=== PATIENT | female | born 1970 | race Caucasian/White ===

== ENCOUNTER → 2019-07-04 14:15 | Outpatient (BNVA) | payer MEDICARE, SELFPAY | PROVIDERS: Family Provider Family Medicine; PCP Family Medicine; Visit Provider Family Medicine | DX: J44.9 Chronic obstructive pulmonary disease, unspecified (principal); I10 Essential (primary) hypertension; F32.9 Major depressive disorder, single episode, unspecified; E11.9 Type 2 diabetes mellitus without complications; K21.9 Gastro-esophageal reflux disease without esophagitis; G43.709 Chronic migraine without aura, not intractable, without status migrainosus; M62.838 Other muscle spasm; E78.5 Hyperlipidemia, unspecified; G47.00 Insomnia, unspecified; Z68.42 Body mass index [BMI] 45.0-49.9, adult; Z72.0 Tobacco use; E55.9 Vitamin D deficiency, unspecified; R53.83 Other fatigue | CPT/HCPCS: 80053; 80061; 82652; 83036 ==

== ENCOUNTER 2019-09-05 16:27 | Inpatient (IN) | payer MEDICARE, MEDICAID, SELFPAY ==
[2019-09-05] VITALS (18 sets, daily range): BP systolic 95–150; BP diastolic 59–107; PULSE 101–120; RESP 12–27; TEMP 36.6–36.9; O2SAT 91–95; BMI 47.3
--- NOTE | 2019-09-05 16:41 | ED_ITS ---
Documented by User: Jeremy Toussaint DO 09/06/19 07:06 HPI - SOB/Dyspnea General: Chief Complaint: Shortness of Breath/Dyspnea Stated Complaint: yellowing skin/abd pain Time Seen by Provider: 09/05/19 16:40 History of Present Illness: HPI Narrative: 49 yo female comes in today complaining of chest heaviness and fullness states he feels like her abdominal cavity is pushing up against her chest. She has a history of DVTs but is no longer any Coumadin. The previous DVT was related to an orthopedic procedure of the left ankle. She said the chest heaviness radiates into her neck at times on the right side but not into her arms. She does have a chronic cough which is nonproductive she states she has asthma that has not changed recently she denies any fever. She also states her abdomen feels heavy she has not impressive amount of central adiposity. She states her appetite is been decreased she denies any GI or symptoms although she has chronic urinary incontinence. No recent new upper respiratory symptoms. She has no known history of coronary artery disease although she does have significant coronary artery risk factors including diabetes hypertension hyperlipidemia. She also is morbidly obese and has a history of sleep apnea. MD elicited complaint: shortness of breath, cough and chest pain Pertinent past history: asthma Onset (ago): day(s) Context: occurred during exertion, medication noncompliance and other (History of DVT) Timing: constant Severity: moderate Exacerbating factors: lying flat and exertion Relieving factors: rest and upright position Known history of: asthma and DVT Associated symptoms: Reports chest congestion, chest pain, cough, nausea, orthopnea and vomiting; Deny abdominal pain, diaphoresis, dizziness, fever(s), hemoptysis, lightheadedness or palpitations Treatment prior to arrival: none Review of Systems Const: Denies: fever(s), chills, body aches, change in appetite, fatigue, malaise or diaphoresis ENMT: Denies: throat pain, ear or mastoid pain, nasal discharge or nasal congestion Card: Reports: chest pain, dyspnea on exertion and orthopnea; Denies: palpitations, edema or lightheadedness Resp: Reports: chest congestion; Denies: dyspnea, productive cough, non-productive cough or hemoptysis GI: Reports: nausea and vomiting; Denies: abdominal pain, hematemesis, coffee ground emesis, diarrhea, constipation, bloating, hematochezia or melena : Denies: flank pain, difficulty voiding, dysuria, urinary frequency or urinary urgency Skin/Breast: Denies: rash or pruritus Neuro: Denies: dizziness PFSH ED PFSH: Medical History (Updated 09/05/19 @ 19:37 by Funmilayo Bangura MD) Asthma BMI 45.0-49.9, adult Chronic migraine COPD (chronic obstructive pulmonary disease) Depression, controlled Essential hypertension GERD (gastroesophageal reflux disease) Hepatic steatosis History of pulmonary embolism Hyperlipidemia Insomnia Mobility impaired Morbid obesity Muscle spasm of both lower legs KARISSA (obstructive sleep apnea) Pedal edema Radicular neuropathy Restless leg syndrome Tobacco abuse Type 2 diabetes mellitus Type 2 diabetes mellitus with diabetic neuropathy Vitamin D deficiency Surgical History (Updated 09/05/19 @ 19:33 by Funmilayo Bangura MD) H/O lithotripsy 08/15 Left ureteral stent which was removed after 1 week History of arthroplasty of right ankle History of carpal tunnel surgery History of laminectomy Hx of cataract surgery S/P cholecystectomy Family History Grandmother Cancer Mother Cancer Father CAD (coronary artery disease) Family/Other Chronic kidney disease (CKD) Social History Smoking and tobacco status: current every day smoker cigarettes Packs smoked per day: 1 Quit status (tobacco): not considering quitting Second hand smoke exposure: Yes Alcohol intake: never Desire information about alcohol rehabilitation?: No Desire information about substance/drug rehabilitation?: No Current occupational status: disabled History of recent travel: No Current gender identity: Female Physical Exam Const: COMMON NORMALS: no acute distress GENERAL APPEARANCE: cooperative and comfortable ORIENTATION/CONSCIOUSNESS: Yes awake, Yes oriented to person, Yes oriented to place and Yes oriented to time HENMT: COMMON NORMALS: normocephalic, atraumatic, hearing grossly normal bilaterally, external ears normal, EAC's normal, TM's normal bilaterally, Normal nasal mucous membranes and turbinates present, moist oral mucous membranes and oropharynx normal HEAD & SCALP: normocephalic and atraumatic NOSE: Normal nasal mucous membranes and turbinates present EXTERNAL EAR: Yes external ears normal EXTERNAL AUDITORY CANAL: EAC's normal TYMPANIC MEMBRANE: TM's normal bilaterally Eye: COMMON NORMALS: Equal, round and reactive pupils present, EOMs intact bilaterally, conjunctivae normal and no scleral icterus CONJUNCTIVA: Yes conjunctivae normal PUPIL: Yes Equal, round and reactive pupils present Neck/C-Spine: COMMON NORMALS: full ROM, no lymphadenopathy, supple and no JVD Lymph: LYMPHATIC: no lymphadenopathy noted and no lymphedema noted Resp: COMMON NORMALS: normal respiratory effort, No retractions, No use of accessory muscles and clear to auscultation bilaterally AUSCULTATION: clear to auscultation bilaterally Cardio: COMMON NORMALS: no JVD, regular rate, regular rhythm and No murmurs p resent (Cardio) RATE: regular rate RHYTHM: regular rhythm GI: COMMON NORMALS: Soft to palpation and No hepatosplenomegaly present AUSCULTATION: Yes normoactive bowel sounds PALPATION: Yes Soft to palpation, No Tenderness to palpation present (GI), No Guarding due to palpation present (GI) and Yes No hepatosplenomegaly present Extremity: COMMON NORMALS: normal to inspection, capillary refill normal, no clubbing, cyanosis or edema, no calf tenderness and no pedal edema Neuro: SENSORIUM/ORIENTATION: Yes oriented to person, Yes oriented to place and Yes oriented to time Skin: COMMON NORMALS: no rashes or lesions noted GENERAL SKIN EXAM: no rashes or lesions noted Course Vital Signs: Vital signs: Vital Signs Temperature 97.8 F 09/05/19 22:00 Pulse Rate 83 09/06/19 06:00 Respiratory Rate 18 09/06/19 06:00 Blood Pressure 97/69 09/06/19 06:00 Pulse Oximetry 89 L 09/06/19 06:00 MDM - SOB/Dyspnea MDM Narrative: Medical decision making narrative: Reviewed with Dr. Brett brink turned over to him at change of shift. Lab Data: Labs: Lab Results 09/05/19 09/05/19 09/05/19 Range/Units 17:08 17:08 17:08 WBC 14.0 H (4.0-10.0) 10^3/ uL RBC 5.04 (4.1-5.3) 10^6/u L Hgb 16.0 H (11.5-15.3) g/dL Hct 48.2 H (37.0-47.0) % MCV 95.6 (81-99) fL MCH 31.7 (28.0-34.0) pg MCHC 33.2 (30.0-36.0) g/dL RDW 12.3 (12.1-15.1) % Plt Count 256 (130-400) 10^3/c mm MPV 9.6 (7.4-10.4) fL Neut % (Auto) 52.0 % Lymph % (Auto) 39.5 % [place] % (Auto) 6.7 % Eos % (Auto) 0.9 % Baso % (Auto) 0.6 % Neut # (Auto) 7.3 (1.8-7.7) 10^3/u L Lymph # (Auto) 5.5 H (0.8-4.8) 10^3/u L [place] # (Auto) 0.9 (0.2-0.9) 10^3/u L Eos # (Auto) 0.1 (0.0-0.8) 10^3/u L Baso # (Auto) 0.1 (0.0-0.1) 10^3/u L Nucleated RBC % (a uto) 0 % Nucleated RBCs # 0.0 /100WBC PT (10.5-13.3) SECO NDS INR (0.8-1.2) D-Dimer (0-0.59) ug/mIFE U Sodium 136 (136-145) mmol/L Potassium 3.7 (3.5-5.1) mmol/L Chloride 99 (98-107) mmol/L Carbon Dioxide 25 (22-29) mmol/L Anion Gap 15.7 (5-19) BUN 12 (6-20) mg/dL Creatinine 0.8 (0.5-0.9) mg/dL GFR Calculation 75.6 L (90-130) mL/min Glucose 178 H (65-115) mg/dL Calculated Osmolal ity 283 L (285-295) mOsm/k g Calcium 8.6 (8.5-10.5) mg/dL Total Bilirubin 0.4 (0.15-1.2) mg/dL AST 51 H (0-32) U/L ALT 74 H (0-33) U/L Alkaline Phosphata se 67 (35-105) IU/L Troponin T Baselin e 25 H (0-10) ng/L Troponin T 120 Min [place] (0-10) ng/L Delta Troponin T (0-10) ABS# NT-Pro-B Natriuret Pep (0-125) pg/mL Total Protein 7.1 (6.6-8.7) g/dL Albumin 4.2 (3.5-5.2) g/dL Globulin 2.9 (1.3-4.6) g/dL Urine Color (Yellow) Urine Appearance (CLEAR) Urine pH (5-7) Ur Specific Gravit y (1.005-1.030) Urine Protein (Negative) Urine Glucose (UA) (Normal) Urine Ketones (Negative) Urine Blood (Negative) Urine Nitrate (Negative) Urine Bilirubin (NEGATIVE) Urine Urobilinogen (Negative) mg/dL Ur Leukocyte Vicky ase (Negative) Urine RBC (0-2) /hpf Urine WBC (0-5) /hpf Ur Squamous Epith Cells (0-5) Urine Bacteria (NONE) 09/05/19 09/05/19 09/05/19 Range/Units 17:08 17:08 17:45 WBC (4.0-10.0) 10^3/ uL RBC (4.1-5.3) 10^6/u L Hgb (11.5-15.3) g/dL Hct (37.0-47.0) % MCV (81-99) fL MCH (28.0-34.0) pg MCHC (30.0-36.0) g/dL RDW (12.1-15.1) % Plt Count (130-400) 10^3/c mm MPV (7.4-10.4) fL Neut % (Auto) % Lymph % (Auto) % [place] % (Auto) % Eos % (Auto) % Baso % (Auto) % Neut # (Auto) (1.8-7.7) 10^3/u L Lymph # (Auto) (0.8-4.8) 10^3/u L [place] # (Auto) (0.2-0.9) 10^3/u L Eos # (Auto) (0.0-0.8) 10^3/u L Baso # (Auto) (0.0-0.1) 10^3/u L Nucleated RBC % (a uto) % Nucleated RBCs # /100WBC PT 12.80 (10.5-13.3) SECO NDS INR 0.94 (0.8-1.2) D-Dimer 3.72 H (0-0.59) ug/mIFE U Sodium (136-145) mmol/L Potassium (3.5-5.1) mmol/L Chloride (98-107) mmol/L Carbon Dioxide (22-29) mmol/L Anion Gap (5-19) BUN (6-20) mg/dL Creatinine (0.5-0.9) mg/dL GFR Calculation (90-130) mL/min Glucose (65-115) mg/dL Calculated Osmolal ity (285-295) mOsm/k g Calcium (8.5-10.5) mg/dL Total Bilirubin (0.15-1.2) mg/dL AST (0-32) U/L ALT (0-33) U/L Alkaline Phosphata se (35-105) IU/L Troponin T Baselin e (0-10) ng/L Troponin T 120 Min [place] (0-10) ng/L Delta Troponin T (0-10) ABS# NT-Pro-B Natriuret Pep (0-125) pg/mL Total Protein (6.6-8.7) g/dL Albumin (3.5-5.2) g/dL Globulin (1.3-4.6) g/dL Urine Color Yellow (Yellow) Urine Appearance Hazy A (CLEAR) Urine pH 5 (5-7) Ur Specific Gravit y 1.015 (1.005-1.030) Urine Protein Neg (Negative) Urine Glucose (UA) Norm (Normal) Urine Ketones 1+ H (Negative) Urine Blood 2+ H (Negative) Urine Nitrate Negative (Negative) Urine Bilirubin Neg (NEGATIVE) Urine Urobilinogen Neg (Negative) mg/dL Ur Leukocyte Vicky ase Trace H (Negative) Urine RBC 0-4 H (0-2) /hpf Urine WBC 15-25 H (0-5) /hpf Ur Squamous Epith Cells None (0-5) Urine Bacteria 3+ H (NONE) 09/05/19 09/05/19 Range/Units 18:43 18:43 WBC (4.0-10.0) 10^3/ uL RBC (4.1-5.3) 10^6/u L Hgb (11.5-15.3) g/dL Hct (37.0-47.0) % MCV (81-99) fL MCH (28.0-34.0) pg MCHC (30.0-36.0) g/dL RDW (12.1-15.1) % Plt Count (130-400) 10^3/c mm MPV (7.4-10.4) fL Neut % (Auto) % Lymph % (Auto) % [place] % (Auto) % Eos % (Auto) % Baso % (Auto) % Neut # (Auto) (1.8-7.7) 10^3/u L Lymph # (Auto) (0.8-4.8) 10^3/u L [place] # (Auto) (0.2-0.9) 10^3/u L Eos # (Auto) (0.0-0.8) 10^3/u L Baso # (Auto) (0.0-0.1) 10^3/u L Nucleated RBC % (a uto) % Nucleated RBCs # /100WBC PT (10.5-13.3) SECO NDS INR (0.8-1.2) D-Dimer (0-0.59) ug/mIFE U Sodium (136-145) mmol/L Potassium (3.5-5.1) mmol/L Chloride (98-107) mmol/L Carbon Dioxide (22-29) mmol/L Anion Gap (5-19) BUN (6-20) mg/dL Creatinine (0.5-0.9) mg/dL GFR Calculation (90-130) mL/min Glucose (65-115) mg/dL Calculated Osmolal ity (285-295) mOsm/k g Calcium (8.5-10.5) mg/dL Total Bilirubin (0.15-1.2) mg/dL AST (0-32) U/L ALT (0-33) U/L Alkaline Phosphata se (35-105) IU/L Troponin T Baselin e (0-10) ng/L Troponin T 120 Min [place] 24.80 H (0-10) ng/L Delta Troponin T -0.20 L (0-10) ABS# NT-Pro-B Natriuret Pep 1707 H (0-125) pg/mL Total Protein (6.6-8.7) g/dL Albumin (3.5-5.2) g/dL Globulin (1.3-4.6) g/dL Urine Color (Yellow) Urine Appearance (CLEAR) Urine pH (5-7) Ur Specific Gravit y (1.005-1.030) Urine Protein (Negative) Urine Glucose (UA) (Normal) Urine Ketones (Negative) Urine Blood (Negative) Urine Nitrate (Negative) Urine Bilirubin (NEGATIVE) Urine Urobilinogen (Negative) mg/dL Ur Leukocyte Vicky ase (Negative) Urine RBC (0-2) /hpf Urine WBC (0-5) /hpf Ur Squamous Epith Cells (0-5) Urine Bacteria (NONE) Discharge Plan Discharge Patient Disposition: Admitted As Inpatient Admit Provider: Funmilayo Bangura Clinical Impression: Pulmonary embolism Qualifiers: Pulmonary embolism type: unspecified Chronicity: acute Acute cor pulmonale presence: unspecified Qualified Code(s): I26.99 - Other pulmonary embolism without acute cor pulmonale Condition: Stable Referrals: Jamee Landin MD [Primary Care Provider] - Discharge Date/Time: 09/05/19 21:40 Coding Level of Care Code ED [employer] Worker for Chg Fwd Exam Comprehensive Documented by User: Kyaw West MD 09/05/19 20:33 HPI - SOB/Dyspnea General: Chief Complaint: Shortness of Breath/Dyspnea Stated Complaint: yellowing skin/abd pain Time Seen by Provider: 09/05/19 16:40 [facility] ED PFSH: Medical History (Updated 09/05/19 @ 19:37 by Funmilayo Bangura MD) Asthma BMI 45.0-49.9, adult Chronic migraine COPD (chronic obstructive pulmonary disease) Depression, controlled Essential hypertension GERD (gastroesophageal reflux disease) Hepatic steatosis History of pulmonary embolism Hyperlipidemia Insomnia Mobility impaired Morbid obesity Muscle spasm of both lower legs KARISSA (obstructive sleep apnea) Pedal edema Radicular neuropathy Restless leg syndrome Tobacco abuse Type 2 diabetes mellitus Type 2 diabetes mellitus with diabetic neuropathy Vitamin D deficiency Surgical History (Updated 09/05/19 @ 19:33 by Funmilayo Bangura MD) H/O lithotripsy 08/15 Left ureteral stent which was removed after 1 week History of arthroplasty of right ankle History of carpal tunnel surgery History of laminectomy Hx of cataract surgery S/P cholecystectomy Family History Grandmother Cancer Mother Cancer Father CAD (coronary artery disease) Family/Other Chronic kidney disease (CKD) Social History Smoking and tobacco status: current every day smoker cigarettes Packs smoked per day: 1 Quit status (tobacco): not considering quitting Second hand smoke exposure: Yes Alcohol intake: never Desire information about alcohol rehabilitation?: No Desire information about substance/drug rehabilitation?: No Current occupational status: disabled History of recent travel: No Current gender identity: Female Course Vital Signs: Vital signs: Vital Signs Temperature 97.8 F 09/05/19 22:00 Pulse Rate 83 09/06/19 06:00 Respiratory Rate 18 09/06/19 06:00 Blood Pressure 97/69 09/06/19 06:00 Pulse Oximetry 89 L 09/06/19 06:00 MDM - SOB/Dyspnea MDM Narrative: Medical decision making narrative: Manju presents here with shortness of breath and was found to have a significant pulmonary embolism on CT. Spoke to radiologist and had a mild heart strain with mild elevated and troponin. Patient's blood pressures here have been stable and does not need a lysis or thrombectomy. Patient started on Lovenox and I spoke to hospitalist and will admit to the ICU. Patient has been stable while here. Lab Data: Labs: Lab Results 09/05/19 09/05/19 09/05/19 Range/Units 17:08 17:08 17:08 WBC 14.0 H (4.0-10.0) 10^3/ uL RBC 5.04 (4.1-5.3) 10^6/u L Hgb 16.0 H (11.5-15.3) g/dL Hct 48.2 H (37.0-47.0) % MCV 95.6 (81-99) fL MCH 31.7 (28.0-34.0) pg MCHC 33.2 (30.0-36.0) g/dL RDW 12.3 (12.1-15.1) % Plt Count 256 (130-400) 10^3/c mm MPV 9.6 (7.4-10.4) fL Neut % (Auto) 52.0 % Lymph % (Auto) 39.5 % [place] % (Auto) 6.7 % Eos % (Auto) 0.9 % Baso % (Auto) 0.6 % Neut # (Auto) 7.3 (1.8-7.7) 10^3/u L Lymph # (Auto) 5.5 H (0.8-4.8) 10^3/u L [place] # (Auto) 0.9 (0.2-0.9) 10^3/u L Eos # (Auto) 0.1 (0.0-0.8) 10^3/u L Baso # (Auto) 0.1 (0.0-0.1) 10^3/u L Nucleated RBC % (a uto) 0 % Nucleated RBCs # 0.0 /100WBC PT (10.5-13.3) SECO NDS INR (0.8-1.2) D-Dimer (0-0.59) ug/mIFE U Sodium 136 (136-145) mmol/L Potassium 3.7 (3.5-5.1) mmol/L Chloride 99 (98-107) mmol/L Carbon Dioxide 25 (22-29) mmol/L Anion Gap 15.7 (5-19) BUN 12 (6-20) mg/dL Creatinine 0.8 (0.5-0.9) mg/dL GFR Calculation 75.6 L (90-130) mL/min Glucose 178 H (65-115) mg/dL Calculated Osmolal ity 283 L (285-295) mOsm/k g Calcium 8.6 (8.5-10.5) mg/dL Total Bilirubin 0.4 (0.15-1.2) mg/dL AST 51 H (0-32) U/L ALT 74 H (0-33) U/L Alkaline Phosphata se 67 (35-105) IU/L Troponin T Baselin e 25 H (0-10) ng/L Troponin T 120 Min [place] (0-10) ng/L Delta Troponin T (0-10) ABS# NT-Pro-B Natriuret Pep (0-125) pg/mL Total Protein 7.1 (6.6-8.7) g/dL Albumin 4.2 (3.5-5.2) g/dL Globulin 2.9 (1.3-4.6) g/dL Urine Color (Yellow) Urine Appearance (CLEAR) Urine pH (5-7) Ur Specific Gravit y (1.005-1.030) Urine Protein (Negative) Urine Glucose (UA) (Normal) Urine Ketones (Negative) Urine Blood (Negative) Urine Nitrate (Negative) Urine Bilirubin (NEGATIVE) Urine Urobilinogen (Negative) mg/dL Ur Leukocyte Vicky ase (Negative) Urine RBC (0-2) /hpf Urine WBC (0-5) /hpf Ur Squamous Epith Cells (0-5) Urine Bacteria (NONE) 09/05/19 09/05/19 09/05/19 Range/Units 17:08 17:08 17:45 WBC (4.0-10.0) 10^3/ uL RBC (4.1-5.3) 10^6/u L Hgb (11.5-15.3) g/dL Hct (37.0-47.0) % MCV (81-99) fL MCH (28.0-34.0) pg MCHC (30.0-36.0) g/dL RDW (12.1-15.1) % Plt Count (130-400) 10^3/c mm MPV (7.4-10.4) fL Neut % (Auto) % Lymph % (Auto) % [place] % (Auto) % Eos % (Auto) % Baso % (Auto) % Neut # (Auto) (1.8-7.7) 10^3/u L Lymph # (Auto) (0.8-4.8) 10^3/u L [place] # (Auto) (0.2-0.9) 10^3/u L Eos # (Auto) (0.0-0.8) 10^3/u L Baso # (Auto) (0.0-0.1) 10^3/u L Nucleated RBC % (a uto) % Nucleated RBCs # /100WBC PT 12.80 (10.5-13.3) SECO NDS INR 0.94 (0.8-1.2) D-Dimer 3.72 H (0-0.59) ug/mIFE U Sodium (136-145) mmol/L Potassium (3.5-5.1) mmol/L Chloride (98-107) mmol/L Carbon Dioxide (22-29) mmol/L Anion Gap (5-19) BUN (6-20) mg/dL Creatinine (0.5-0.9) mg/dL GFR Calculation (90-130) mL/min Glucose (65-115) mg/dL Calculated Osmolal ity (285-295) mOsm/k g Calcium (8.5-10.5) mg/dL Total Bilirubin (0.15-1.2) mg/dL AST (0-32) U/L ALT (0-33) U/L Alkaline Phosphata se (35-105) IU/L Troponin T Baselin e (0-10) ng/L Troponin T 120 Min [place] (0-10) ng/L Delta Troponin T (0-10) ABS# NT-Pro-B Natriuret Pep (0-125) pg/mL Total Protein (6.6-8.7) g/dL Albumin (3.5-5.2) g/dL Globulin (1.3-4.6) g/dL Urine Color Yellow (Yellow) Urine Appearance Hazy A (CLEAR) Urine pH 5 (5-7) Ur Specific Gravit y 1.015 (1.005-1.030) Urine Protein Neg (Negative) Urine Glucose (UA) Norm (Normal) Urine Ketones 1+ H (Negative) Urine Blood 2+ H (Negative) Urine Nitrate Negative (Negative) Urine Bilirubin Neg (NEGATIVE) Urine Urobilinogen Neg (Negative) mg/dL Ur Leukocyte Vicky ase Trace H (Negative) Urine RBC 0-4 H (0-2) /hpf Urine WBC 15-25 H (0-5) /hpf Ur Squamous Epith Cells None (0-5) Urine Bacteria 3+ H (NONE) 09/05/19 09/05/19 Range/Units 18:43 18:43 WBC (4.0-10.0) 10^3/ uL RBC (4.1-5.3) 10^6/u L Hgb (11.5-15.3) g/dL Hct (37.0-47.0) % MCV (81-99) fL MCH (28.0-34.0) pg MCHC (30.0-36.0) g/dL RDW (12.1-15.1) % Plt Count (130-400) 10^3/c mm MPV (7.4-10.4) fL Neut % (Auto) % Lymph % (Auto) % [place] % (Auto) % Eos % (Auto) % Baso % (Auto) % Neut # (Auto) (1.8-7.7) 10^3/u L Lymph # (Auto) (0.8-4.8) 10^3/u L [place] # (Auto) (0.2-0.9) 10^3/u L Eos # (Auto) (0.0-0.8) 10^3/u L Baso # (Auto) (0.0-0.1) 10^3/u L Nucleated RBC % (a uto) % Nucleated RBCs # /100WBC PT (10.5-13.3) SECO NDS INR (0.8-1.2) D-Dimer (0-0.59) ug/mIFE U Sodium (136-145) mmol/L Potassium (3.5-5.1) mmol/L Chloride (98-107) mmol/L Carbon Dioxide (22-29) mmol/L Anion Gap (5-19) BUN (6-20) mg/dL Creatinine (0.5-0.9) mg/dL GFR Calculation (90-130) mL/min Glucose (65-115) mg/dL Calculated Osmolal ity (285-295) mOsm/k g Calcium (8.5-10.5) mg/dL Total Bilirubin (0.15-1.2) mg/dL AST (0-32) U/L ALT (0-33) U/L Alkaline Phosphata se (35-105) IU/L Troponin T Baselin e (0-10) ng/L Troponin T 120 Min [place] 24.80 H (0-10) ng/L Delta Troponin T -0.20 L (0-10) ABS# NT-Pro-B Natriuret Pep 1707 H (0-125) pg/mL Total Protein (6.6-8.7) g/dL Albumin (3.5-5.2) g/dL Globulin (1.3-4.6) g/dL Urine Color (Yellow) Urine Appearance (CLEAR) Urine pH (5-7) Ur Specific Gravit y (1.005-1.030) Urine Protein (Negative) Urine Glucose (UA) (Normal) Urine Ketones (Negative) Urine Blood (Negative) Urine Nitrate (Negative) Urine Bilirubin (NEGATIVE) Urine Urobilinogen (Negative) mg/dL Ur Leukocyte Vicky ase (Negative) Urine RBC (0-2) /hpf Urine WBC (0-5) /hpf Ur Squamous Epith Cells (0-5) Urine Bacteria (NONE) Imaging Data^: CT Chest: Attestation: I personally reviewed and interpreted this imaging study as follows: Radiologist's impression: [place] [address] CT Scan Report Signed Patient: Manju Hale Unit #: [id number] : 1970 Age/Sex: 49 / F ADM Date: 09/05/19 Loc: ER Room/Bed: Attending Dr: Ordering Provider/Ordering MD: Jeremy Toussaint DO Date of Service: 09/05/19 Procedure(s): CT angio chest PE [facility] [id number] Accession Number(s): [id number] Report Number: [id number] PROCEDURE INFORMATION: Exam: CT Angiography Chest With Contrast Exam date and time: 09/05/2019 6:15 PM Age: 49 years old Clinical indication: Shortness of breath; Prior surgery; Surgery type: Neck, gb; Additional info: Chest pain. Dyspnea TECHNIQUE: Imaging protocol: Computed tomographic angiography of the chest with intravenous contrast. 3D rendering: MIP and/or 3D reconstructed images were created by the technologist. Radiation optimization: All CT scans at this facility use at least one of these dose optimization techniques: automated exposure control; mA and/or kV adjustment per patient size (includes targeted exams where dose is matched to clinical indication); or iterative reconstruction. Contrast material: OMNI 350; Contrast volume: 72 ml; Contrast route: IV; COMPARISON: CR XR chest 1V portable [id number] 09/05/2019 4:53 PM RADIATION DOSE METRICS: Total DLP: 621.22 mGy-cm FINDINGS: Pulmonary arteries: Bulky filling defects bilaterally. On the right clot is seen within the distal right pulmonary artery extending throughout lower lobe segmental and branches, largely occlusive, as well as partially occlusive within the right middle lobe and to lesser extent right upper lobe. On the left partially occlusive clot is seen within the lower lobe segmental and subsegmental branches and to a lesser extent upper lobe. The main pulmonary artery is free of clot. Main pulmonary artery measures 3 cm in caliber. Aorta: Unremarkable. No aortic aneurysm. No aortic dissection. Lungs: No focal consolidation. Central airways normal caliber and patent. Pleural space: Unremarkable. No pneumothorax. No pleural effusion. Heart: Abnormal RA/PA ratio of 1.2 indicating increased right heart pressure. The heart is normal in size. Trace pericardial effusion. Lymph nodes: Unremarkable. No enlarged lymph nodes. Upper abdomen: Limited imaging of the upper abdomen reveals diffuse hepatic steatosis and cholecystectomy clips. Bones/joints: Partially imaged lower cervical fusion plate. No evidence of acute or aggressive osseous lesion. Soft tissues: Unremarkable. CT/CT angio chest PE protcl [id number] IMPRESSION: 1. Bilateral acute pulmonary emboli, greater clot burden on the right with evidence of right heart strain. 2. The lungs are well expanded with no consolidation/infarct. 3. Incidental note of diffuse hepatic steatosis. EKG Data^: EKG 1: Attestation: I personally reviewed and interpreted this EKG as follows: EKG Interpretation Date: 09/05/19 EKG interpretation time: 19:20 Interpretation: sinus tach hr 103 nonspecific t wve abnormality qrs 88 qtc 411 Critical Care Time Critical Care Time: Critical Care Time: Yes Total Critical Care Time: 36 Attestation: This case had a high probability of a clinically significant, sudden, or life threatening deterioration of this patient's condition which required my full and direct attention, intervention and personal management. 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
--- NOTE | 2019-09-05 16:43 | XR_ITS ---
WS: [id number] PORTABLE CHEST HISTORY: dyspnea/cough COMPARISON: 07/28/2018 Lungs are clear and well expanded. No pleural effusion or pneumothorax. Cardiac size: Normal. Mediastinum/Aorta: Normal mediastinum. No osseous abnormality seen. XR/XR chest 1V portable [id number] IMPRESSION: Unremarkable portable chest.
--- NOTE | 2019-09-05 16:43 | ECG_ITS ---
Measurements Intervals [place] Rate: 103 P: 50 NM: 123 QRS: 56 QRSD: 88 T: -31 QT: 351 QTc: 462 SINUS TACHYCARDIA NONSPECIFIC T-WAVE ABNORMALITY Compared to ECG 09/05/2019 17:03:31 No significant changes Electronically Signed On 09-06-2019 19:31:39 CDT by Bhargavi Aragon M.D. [id number]
--- NOTE | 2019-09-05 16:53 | USCV_ITS ---
Geoffrey Manju Age: 49 Gender: F : 1970 Exam Date: 09/05/2019 17:12 Ordering Phys: Jeremy Toussaint DO Technologist: Priyank Tatum Exam Location: [facility] [place] Indication: CALF PAIN PROCEDURES: Venous duplex imaging was performed in bilateral lower extremities. The following venous structures were evaluated: common femoral vein, profunda vein, proximal portion of the greater saphenous vein, superficial femoral vein, and the popliteal vein. In addition, the posterior tibial and peroneal trunk were evaluated. Serial compression, augmentation maneuvers, and spectral Doppler flow evaluation were performed. FINDINGS: Patient has history of thrombus in the right leg. Chronic, retracting DVT is noted in the popliteal and peroneal veins on the right. . Augmental flow was noted through the popliteal nad peroneal veins on the right. All other veins imaged throughout the right and left lower extremity appear free of thrombus at this time. CONCLUSIONS Chronic retracting DVT right popliteal and peroneal veins. Dr. Rose Donnelly DO (Electronically Signed) Final Date: 06 September 2019 09:25 S
[2019-09-05 17:15] LABS: Basophils # 0.1 10^3/uL (0.0-0.1); Basophils % 0.6 %; Eosinophils # 0.1 10^3/uL (0.0-0.8); Eosinophils % 0.9 %; Hematocrit 48.2 % (37.0-47.0); Lymphocytes # 5.5 10^3/uL (0.8-4.8); Lymphocytes % 39.5 %; Mean Corpuscular HGB Conc 33.2 g/dL (30.0-36.0); Mean Corpuscular Hemoglobin 31.7 pg (28.0-34.0); Mean Corpuscular Volume 95.6 fL (81-99); Mean Platelet Volume 9.6 fL (7.4-10.4); Monocytes # 0.9 10^3/uL (0.2-0.9); Monocytes % 6.7 %; Neutrophils # 7.3 10^3/uL (1.8-7.7); Nucleated Red Blood Cells % 0 %; Platelet Count 256 10^3/cmm (130-400); Red Blood Count 5.04 10^6/uL (4.1-5.3); Red Cell Distribution Width 12.3 % (12.1-15.1)
[2019-09-05 17:29] LABS: D Dimer 3.72 ug/mIFEU (0-0.59)
[2019-09-05 17:33] LABS: Alanine Aminotransferase 74 U/L (0-33); Albumin Level 4.2 g/dL (3.5-5.2); Alkaline Phosphatase 67 IU/L (35-105); Anion Gap 15.7 (5-19); Aspartate Amino Transferase 51 U/L (0-32); Blood Urea Nitrogen 12 mg/dL (6-20); Calcium 8.6 mg/dL (8.5-10.5); Carbon Dioxide 25 mmol/L (22-29); Chloride 99 mmol/L (98-107); Globulin 2.9 g/dL (1.3-4.6); Glomerular Filtration Rate 75.6 mL/min (90-130); Glucose 178 mg/dL (65-115); Osmolality Calculated 283 mOsm/kg (285-295); Potassium 3.7 mmol/L (3.5-5.1); Sodium 136 mmol/L (136-145); Total Bilirubin 0.4 mg/dL (0.15-1.2); Total Protein 7.1 g/dL (6.6-8.7)
[2019-09-05 17:37] LABS: Troponin(5th) Baseline 25 ng/L (0-10)
--- NOTE | 2019-09-05 17:46 | CTR_ITS ---
PROCEDURE INFORMATION: Exam: CT Angiography Chest With Contrast Exam date and time: 09/05/2019 6:15 PM Age: 49 years old Clinical indication: Shortness of breath; Prior surgery; Surgery type: Neck, gb; Additional info: Chest pain. Dyspnea TECHNIQUE: Imaging protocol: Computed tomographic angiography of the chest with intravenous contrast. 3D rendering: MIP and/or 3D reconstructed images were created by the technologist. Radiation optimization: All CT scans at this facility use at least one of these dose optimization techniques: automated exposure control; mA and/or kV adjustment per patient size (includes targeted exams where dose is matched to clinical indication); or iterative reconstruction. Contrast material: OMNI 350; Contrast volume: 72 ml; Contrast route: IV; COMPARISON: CR XR chest 1V portable [id number] 09/05/2019 4:53 PM RADIATION DOSE METRICS: Total DLP: 621.22 mGy-cm FINDINGS: Pulmonary arteries: Bulky filling defects bilaterally. On the right clot is seen within the distal right pulmonary artery extending throughout lower lobe segmental and branches, largely occlusive, as well as partially occlusive within the right middle lobe and to lesser extent right upper lobe. On the left partially occlusive clot is seen within the lower lobe segmental and subsegmental branches and to a lesser extent upper lobe. The main pulmonary artery is free of clot. Main pulmonary artery measures 3 cm in caliber. Aorta: Unremarkable. No aortic aneurysm. No aortic dissection. Lungs: No focal consolidation. Central airways normal caliber and patent. Pleural space: Unremarkable. No pneumothorax. No pleural effusion. Heart: Abnormal RA/PA ratio of 1.2 indicating increased right heart pressure. The heart is normal in size. Trace pericardial effusion. Lymph nodes: Unremarkable. No enlarged lymph nodes. Upper abdomen: Limited imaging of the upper abdomen reveals diffuse hepatic steatosis and cholecystectomy clips. Bones/joints: Partially imaged lower cervical fusion plate. No evidence of acute or aggressive osseous lesion. Soft tissues: Unremarkable. CT/CT angio chest PE protcl [id number] IMPRESSION: 1. Bilateral acute pulmonary emboli, greater clot burden on the right with evidence of right heart strain. 2. The lungs are well expanded with no consolidation/infarct. 3. Incidental note of diffuse hepatic steatosis. Radiation Dose CTDIVOL = (mGy): DLP = 621.22 (mGy-cm)
[2019-09-05 18:12] LABS: Add Urine Microscopic? YES; Bilirubin Urine Neg (NEGATIVE); Blood Urine 2+ (Negative); Glucose Urine UA Norm (Normal); Ketones Urine 1+ (Negative); Leukocyte Esterase Urine Trace (Negative); Nitrate Urine Negative (Negative); Protein Urine Neg (Negative); Specific Gravity, Urine 1.015 (1.005-1.030); Urine Appearance Hazy (CLEAR); Urine Color Yellow (Yellow); Urobilinogen Urine Neg (Negative); pH Urine 5 (5-7)
[2019-09-05 18:13] LABS: Add Urine Culture? Yes; Bacteria Urine 3+; RBC Urine 0-4 /hpf (0-2); WBC Urine 15-25 /hpf (0-5)
[2019-09-05] MEDS: iohexol 350 mg/mL 100 mL Btl IV (18:36)
--- NOTE | 2019-09-05 18:59 | PC.NURSE ---
Report received from ART [facility] and care transferred to [facility]
[2019-09-05] MEDS: enoxaparin 100 mg/mL Syringe SUBCUT (19:20)
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
[2019-09-05] MEDS: ondansetron 2 mg/ML SDV 2 mL 4 MG IVP (19:32)
[2019-09-05] MEDS: cefTRIAXone 1,000 MG in sodium chloride 0.9% (plus) 50 ML 100 MG IV (19:34)
[2019-09-05 19:42] LABS: NT Pro B Type Natriuretic Pept 1707 pg/mL (0-125)
[2019-09-05 19:42] LABS: INR 0.94 (0.8-1.2)
[2019-09-05 22:43] LABS: Platelet Count 241 10^3/cmm (130-400)
--- NOTE | 2019-09-05 22:43 | ECG_ITS ---
Measurements Intervals [place] Rate: 102 P: 44 [place]: 130 QRS: 55 QRSD: 84 T: -21 QT: 356 QTc: 466 SINUS TACHYCARDIA NONSPECIFIC T-WAVE ABNORMALITY Compared to ECG 08/12/2018 12:57:07 T-wave abnormality now present Electronically Signed On 09-05-2019 19:31:55 CDT by Funmilayo Dillon M.D. [email or web address]
[2019-09-05] MEDS: gabapentin 400 mg Capsule PO (22:48)
[2019-09-05] MEDS: heparin drip 25,000 UNIT/500 ML PREMIX 35.1 UNIT IV (22:49)
[2019-09-05] MEDS: heparin 5,000 unit/mL INJ 1 mL IV (22:49)
[2019-09-05 22:50] LABS: Partial Thromboplastin Time 27.9 SECONDS (23.9-36.7)
[2019-09-05 23:00] LABS: Troponin 5 6HR 26.27 ng/L (0-10); Troponin 5 6HR Delta 1.27 ng/L (0-12)
[2019-09-05 23:02] LABS: Glucose Point of Care 215 mg/dL (70-110)
[2019-09-06] VITALS (41 sets, daily range): BP systolic 78–157; BP diastolic 59–99; PULSE 67–121; RESP 11–31; TEMP 37.1; O2SAT 18–98
[2019-09-06 04:42] LABS: Basophils # 0.1 10^3/uL (0.0-0.1); Basophils % 0.7 %; Eosinophils # 0.2 10^3/uL (0.0-0.8); Eosinophils % 1.3 %; Hematocrit 43.5 % (37.0-47.0); Hemoglobin 14.4 g/dL (11.5-15.3); Lymphocytes # 5.4 10^3/uL (0.8-4.8); Lymphocytes % 44.9 %; Mean Corpuscular HGB Conc 33.1 g/dL (30.0-36.0); Mean Corpuscular Hemoglobin 32.3 pg (28.0-34.0); Mean Corpuscular Volume 97.5 fL (81-99); Mean Platelet Volume 9.9 fL (7.4-10.4); Monocytes # 0.8 10^3/uL (0.2-0.9); Monocytes % 6.2 %; Neutrophils # 5.6 10^3/uL (1.8-7.7); Neutrophils % 46.6 %; Nucleated Red Blood Cells % 0 %; Platelet Count 221 10^3/cmm (130-400); Red Blood Count 4.46 10^6/uL (4.1-5.3); Red Cell Distribution Width 12.3 % (12.1-15.1)
[2019-09-06 05:04] LABS: Partial Thromboplastin Time 88.5 SECONDS (23.9-36.7)
[2019-09-06 05:07] LABS: Anion Gap 17.7 (5-19); Blood Urea Nitrogen 15 mg/dL (6-20); Calcium 8.9 mg/dL (8.5-10.5); Carbon Dioxide 23 mmol/L (22-29); Chloride 99 mmol/L (98-107); Glomerular Filtration Rate 75.6 mL/min (90-130); Glucose 213 mg/dL (65-115); Osmolality Calculated 285 mOsm/kg (285-295); Potassium 3.7 mmol/L (3.5-5.1); Sodium 136 mmol/L (136-145)
[2019-09-06 07:26] LABS: Glucose Point of Care 216 mg/dL (70-110)
[2019-09-06] MEDS: atorvastatin 40 mg Tablet 20 MG PO (09:01)
[2019-09-06] MEDS: gabapentin 400 mg Capsule PO ×3 (09:01→22:03)
[2019-09-06] MEDS: duloxetine 60 mg Capsule PO ×2 (09:01→18:32)
[2019-09-06] MEDS: cefTRIAXone 1,000 MG in sodium chloride 0.9% (plus) 50 ML 100 MG IV (09:01)
--- NOTE | 2019-09-06 09:44 | P.PN_ITS ---
Subjective Subjective: Interval history: Chart reviewed including old [facility] records. Was intermittently hypotensive and tachycardic overnight, vitals more stable this AM. Is currently on heparin drip. Echo findings reviewed. Borderline hypoxic on RA. Resting in bed, no apparent distress, has just been placed on supplemental oxygen. Does remember being treated with Coumadin in the past seco ndary to PE and right lower extremity DVT, cannot recall dose and estimates that this was approximately 2 to 3 years ago. Very reluctant to consider Lovenox as she dislikes injections. Discussed need to initiate bridging with continued heparin drip and initiation of Coumadin she is agreeable to. Discussed need for lifelong anticoagulation. Medications: Reviewed: Yes Medication Review Details: Active Medications Generic Name Dose Route Start Last Admin Trade Name Freq PRN Reason Stop Dose Admin Atorvastatin Calci um 20 mg 09/06/19 09:00 09/06/19 09:01 Lipitor PO 20 mg DAILY LAURA Administration Dextrose 25 ml 09/05/19 22:07 D50w IVP ONCE PRN hypoglycemia prot ocol Protocol Dextrose 50 ml 09/05/19 22:07 D50w IVP PRN PRN hypoglycemia prot ocol Protocol Duloxetine HCl 60 mg 09/06/19 09:00 09/06/19 09:01 Cymbalta PO 60 mg BID LAURA Administration Gabapentin 400 mg 09/05/19 22:07 09/06/19 09:01 Neurontin PO 400 mg TID LAURA Administration Glucagon 1 mg 09/05/19 22:07 Glucagen IM ONCE PRN Adult Acute Hypog lycemia Prot. Protocol Heparin Sodium (Be ef Lung) 0 unit 09/05/19 22:07 09/05/19 22:49 Heparin IV 6,300 unit PRN PRN Administration Heparin weight-ba se protocol Protocol Dextrose 500 mls @ 100 mls /hr 09/05/19 22:07 D5w IV ONCE PRN Adult Acute Hypog lycemia Prot Protocol Heparin Sodium/Sod ium Chloride 25,000 unit in 50 0 mls @ 0 mls/hr 09/05/19 22:07 09/06/19 05:22 Heparin Drip IV 11.98 unit/kg/hr .Q0M LAURA 30 mls/hr Titration Protocol Per Protocol Ceftriaxone Sodium 1,000 mg/ 50 mls @ 100 mls/ hr 09/06/19 09:00 09/06/19 09:01 Sodium Chloride IV 100 mls/hr DAILY LAURA Administration Protocol Insulin Aspart 0 unit 09/05/19 22:07 09/06/19 08:57 Novolog SUBCUT 6 unit WM&BEDTIME LAURA Administration Protocol erythromycin base Allergy (Severe, Verified 09/05/19 14:42) ALGY-Anaphylaxis Penicillins Allergy (Severe, Verified 09/05/19 14:42) ALGY-Anaphylaxis tetracycline Allergy (Severe, Verified 09/05/19 14:42) ALGY-Anaphylaxis shellfish derived Allergy (Intermediate, Verified 09/05/19 14:42) ALGY-Hives insect venom Allergy (Mild, Verified 09/05/19 14:42) ALGY-Swell Lip/Tongue/Throat Vitals/I&O/Wt Last Vital Signs Temp 97.8 F 09/05/19 22:00 Pulse 83 09/06/19 06:00 Resp 18 09/06/19 06:00 BP 97/69 09/06/19 06:00 Pulse Ox 89 L 09/06/19 06:00 09/05/19 09/06/19 09/06/19 22:59 06:59 14:59 Intake Total 50 / 50 229.905 / 279.905 Balance 50 / 50 229.905 / 279.905 Weight last 48 hrs Weight 125.191 kg Physical Exam Const: COMMON NORMALS: no acute distress, patient oriented x3 and alert GENERAL APPEARANCE: cooperative and comfortable NUTRITIONAL APPEARANCE: obese morbidly obese ORIENTATION/CONSCIOUSNESS: Yes awake HENMT: COMMON NORMALS: normocephalic, atraumatic, hearing grossly normal bilaterally and moist oral mucous membranes HEAD & SCALP: normocephalic and atraumatic Eye: COMMON NORMALS: Equal, round and reactive pupils present, EOMs intact b ilaterally and conjunctivae normal CONJUNCTIVA: Yes conjunctivae normal PUPIL: Yes Equal, round and reactive pupils present Neck/C-Spine: COMMON NORMALS: full ROM GENERAL: Yes normal visual ins pection and Yes trachea midline OTHER: -short, thick neck Chest: CHEST: Yes Symmetrical chest wall rise Resp: COMMON NORMALS: normal respiratory effort, No retractions, No use of accessory muscles and clear to auscultation bilaterally EFFORT & INSPECTION: Yes able to speak in complete sentences, Yes symmetric chest movement and No tachypneic AUSCULTATION: clear to auscultation bilaterally OTHER: -on 2 L NC Cardio: COMMON NORMALS: regular rate, regular rhythm, S1 normal heart sound present, S2 normal heart sound present and No murmurs present (Cardio) RATE: regular rate RHYTHM: regular rhythm HEART SOUNDS: S1 normal heart sound present and S2 normal heart sound present GI: COMMON NORMALS: Normal to inspection, nondistended, normoactive bowel sounds present, Soft to palpation and non-tender INSPECTION: Yes central obesity PALPATION: Yes Soft to palpation Extremity: COMMON NORMALS: normal to inspection, full ROM, no clubbing, cyanosis or edema and no pedal edema Neuro: COMMON NORMALS: patient oriented x3, moves all extremities, no focal motor deficits and no sensory deficits noted SENSORIUM/ORIENTATION: Yes alert Psych: COMMON NORMALS: mental status grossly normal, Normal thought process present, cooperative, normal affect and speech normal SPEECH: Yes normal speech THOUGHT PROCESS: Normal thought process present Skin: COMMON NORMALS: no rashes or lesions noted, no jaundice, no petechiae and no mottling GENERAL SKIN EXAM: no rashes or lesions noted Data : 09/06/19 04:30 09/06/19 04:30 A&P Assessment and plan (1) Pulmonary embolism: -Has reported history of prior PE and right lower extremity DVT both of which required post-op, previously treated with Coumadin -CTA noted with bilateral acute PE, greater clot burden on the right, evidence of right heart strain -Venous duplex shows chronic DVT in the right popliteal and subacute DVT in peroneal veins -Will need lifelong anticoagulation -Currently on heparin drip, start on Coumadin, daily INR with goal of 2-3. Coumadin would likely be a good option due to body habitus; she would prefer not to use injection form of AC i.e. Lovenox -Echo: EF=55-60%, no RWMA, G1DD, moderate pulmonary HTN (51), trace MR, mild TR -greatest risk factors are likely morbid obesity, sedentary lifestyle; reports maternal family history of hypercoaguloble state -noted to be hypotensive and tachycardic overnight, borderline hypoxic on RA; continue to monitor vital signs -monitor respiratory status, supplemental oxygen as needed Status: Acute Qualifiers: Acute cor pulmonale presence: unspecified Chronicity: acute Pulmonary embolism type: unspecified Qualified Code(s): I26.99 - Other pulmonary embolism without acute cor pulmonale (2) UTI (urinary tract infection): -symptomatic: dysuria, pruritus -UA indicative of infection -f/u urine cx -on Ceftriaxone Status: Acute Qualifiers: Hematuria presence: without hematuria Urinary tract infection type: acute cystitis Qualified Code(s): N30.00 - Acute cystitis without hematuria (3) Essential hypertension: -hypotensive overnight, BP low normal this AM -hold oral antihypertensives -continue to monitor vital signs Status: Chronic (4) Type 2 diabetes mellitus: -A1c-7.6 -not insulin dependent; hold metformin due to contrast study -ISS, accucheks, hypoglycemia precautions -consistent carb diet as tolerated Status: Chronic Qualifiers: Diabetes mellitus complication status: with other specified complication Diabetes mellitus adjunct faculty for medical terminology insulin use: without snf use Qualified Code(s): E11.69 - Type 2 diabetes mellitus with other specified complication (5) Morbid obesity: -BMI-47 kg/m2 with associated comorbidities as noted -ambulates with walker for short distances, pending electric WC -fall precautions Status: Chronic (6) Tobacco abuse: -1 PPD -working on quitting, has been on Chantix Status: Chronic (7) Hyperlipidemia: -noted lipid panel -on statin Status: Chronic Qualifiers: Hyperlipidemia type: mixed hyperlipidemia Qualified Code(s): E78.2 - Mixed hyperlipidemia (8) GERD (gastroesophageal reflux disease): -reported hx of Claire's esophagus -has been following up with Dr. Busch and was scheduled for EGD this week, rescheduled -on PPI Status: Chronic Qualifiers: Esophagitis presence: without esophagitis Qualified Code(s): K21.9 - Gastro-esophageal reflux disease without esophagitis (9) Depression, controlled: -continue Cymbalta Status: Chronic (10) COPD (chronic obstructive pulmonary disease): -not oxygen dependent at baseline -continue to monitor respiratory status, supplemental oxygen as needed -no acute exacerbation Status: Chronic Qualifiers: COPD type: chronic bronchitis Chronic bronchitis type: simple Qu alified Code(s): J41.0 - Simple chronic bronchitis (11) Hepatic steatosis: -diffuse hepatic steatosis noted on imaging, mild transaminitis Status: Chronic (12) History of Claire's esophagus: Status: Chronic Additional A&P Information -Chronic diastolic CHF: no acute exacerbation, BNP elevation likely secondary to acute PE -hx of migraine headaches -GI ppx with PPI -no need for DVT ppx as on therapeutic AC -Dispo: home; may need HH if need to continue bridging -Code status: FULL code -ICU care due to need for continued close hemodynamic and respiratory status monitoring, low threshold for decompensation Attestations Medical Necessity Statement*: Patient requires hospitalization for continued therapeutic anticoagulation as treatment for his noted bilateral PE and right lower extremity DVT as well as treatment for UTI with IV antibiotics pending culture results. Time Spent in Patient Care: Greater than 35 minutes (>than 50% of time spent in counselling and/or direct pt care on unit) . Coding Level of Care Code Acute Computed Tomography Technologist for g Fwd Exam Comprehensive Diagnoses Pulmonary embolism I26.99 Acute cor pulmonale presence: unspecified Chronicity: acute Pulmonary embolism type: unspecified UTI (urinary tract infection) N30.00 Hematuria presence: without hematuria Urinary tract infection type: acute cystitis Essential hypertension I10 Type 2 diabetes mellitus E11.69 Diabetes mellitus complication status: with other specified complication Diabetes mellitus adjunct faculty for medical terminology insulin use: without snf use Morbid obesity E66.01 Tobacco abuse Z72.0 Hyperlipidemia E78.2 Hyperlipidemia type: mixed hyperlipidemia GERD (gastroesophageal reflux disease) K21.9 Esophagitis presence: without esophagitis Depression, controlled F32.9 COPD (chronic obstructive pulmonary disease) J41.0 COPD type: chronic bronchitis Chronic bronchitis type: simple Hepatic steatosis K76.0 History of Claire's esophagus Z87.19
[2019-09-06] MEDS: pantoprazole DR 40 mg Tablet PO ×2 (11:18→18:32)
--- NOTE | 2019-09-06 11:18 | PC.NURSE ---
Protonix administered at 1100 instead of 1000. AM meds were already given. Did not see new order for new med.
[2019-09-06 11:24] LABS: Glucose Point of Care 176 mg/dL (70-110)
[2019-09-06 12:05] LABS: Partial Thromboplastin Time 51.7 SECONDS (23.9-36.7)
--- NOTE | 2019-09-06 12:45 | PC.NURSE ---
PTT resulted. Heparin gtt increased to 33mls/hr per protocol.
[2019-09-06] MEDS: heparin drip 25,000 UNIT/500 ML PREMIX 30 UNIT IV (14:11)
[2019-09-06] MEDS: warfarin 5 mg Tablet PO (15:55)
--- NOTE | 2019-09-06 15:57 | PC.NURSE ---
Pt using bathroom when 1400 Coumadin due. Nurse became busy with other pt and administered with 1500 Gabapentin.
[2019-09-06 16:41] LABS: Glucose Point of Care 185 mg/dL (70-110)
[2019-09-06 18:41] LABS: Partial Thromboplastin Time 48.6 SECONDS (23.9-36.7)
[2019-09-06] MEDS: methocarbamol 750 mg Tablet PO (22:03)
--- NOTE | 2019-09-06 22:07 | USCV_ITS ---
Geoffrey Manju Age: 49 Gender: F : 1970 Exam Date: 09/06/2019 06:02 Ordering Phys: Funmilayo Bangura MD Technologist: Ebonie Forman Exam Location: [facility] – [place] Indication: PE RT HEART STRAIN BP: 90 / 68 HR: 84 Rhythm: Sinus Technical Quality: Adequate MEASUREMENTS (Male / Female) Normal Values 2D ECHO LV Diastolic Diameter PLAX 2.7 cm 4.2 - 5.9 / 3.9 - 5.3 cm LV Systolic Diameter PLAX 3.0 cm LV Chamber Size 2.3 cm IVS Diastolic Thickness 1.8 cm 0.6 - 1.0 / 0.6 - 0.9 cm IVS Systolic Thickness 1.9 cm LVPW Diastolic Thickness 1.5 cm 0.6 - 1.0 / 0.6 - 0.9 cm LVPW Systolic Thickness 1.8 cm RV Chamber Size 3.1 cm LVOT Diameter 2.0 cm LV Ejection Fraction 2D Teich 33.0 % LV Ejection Fraction MOD 2C 27.3 % LV Ejection Fraction 2C AL 24.9 % LA Diameter 4.0 cm LA Width 2.3 cm LA Height 4.0 cm RA Width 3.3 cm RA Height 4.1 cm Aorta at Sinotubular Diameter 3.1 cm M-MODE LV Diastolic Diameter MM 3.8 cm 4.2 - 5.9 / 3.9 - 5.3 cm LV Systolic Diameter MM 2.9 cm LV Ejection Fraction MM Teich 48.1 % IVS Diastolic Thickness MM 1.4 cm 0.6 - 1.0 / 0.6 - 0.9 cm IVS Systolic Thickness MM 1.5 cm LVPW Diastolic Thickness MM 1.3 cm 0.6 - 1.0 / 0.6 - 0.9 cm LVPW Systolic Thickness MM 1.4 cm RV Diastolic Diameter MM 1.1 cm Aortic Annulus Diameter 3.4 cm LA Ao Ratio MM 1.2 MV E Point Septal Separation 0.3 cm DOPPLER AV Peak Velocity 127.0 cm/s LVOT Peak Velocity 79.0 cm/s AV Area Cont Eq vti 2.2 cm squared AV Area Cont Eq pk 2.0 cm squared MV Area PHT 5.4 cm squared Mitral E to A Ratio 1.3 MV E' Velocity 7.0 cm/s Mitral E to MV E' Ratio 8.8 Mitral E to LV E' Lateral Ratio 8.7 Mitral E to LV E' Septal Ratio 9.0 TR Peak Velocity 300.3 cm/s TR Peak Gradient 36.1 mmHg TR Mean Velocity 207.0 cm/s TR Mean Gradient 20.0 mmHg TR Velocity Time Integral 99.2 cm TV Peak E Velocity 53.0 cm/s Right Atrial Pressure 15.0 mmHg Pulmonary Artery Systolic Pressu 51.1 mmHg PV Peak Velocity 57.0 cm/s RV Acceleration Time 0.0 s RV Ejection Time 0.3 s RV AcT/ET 0.2 FINDINGS Left Ventricle Normal left ventricular size, systolic function and wall thickness, with no regional wall motion abnormalities. Grade I/IV diastolic dysfunction (abnormal relaxation filling pattern), normal to mildly elevated filling pressures. Left ventricular ejection fraction is estimated at 55-60 %. Right Ventricle Normal right ventricular size. Mildly decreased right ventricular systolic function. Moderate pulmonary hypertension, RVSP 51.1 mmHg. Right Atrium Normal right atrial size. Increased right atrial pressure approximately 15 mmHg Left Atrium Mildly increased left atrial size. Mitral Valve Structurally normal mitral valve. Trace mitral valve regurgitation. Aortic Valve Structurally normal aortic valve without significant sclerosis or stenosis. There is no aortic regurgitation. Tricuspid Valve Structurally normal tricuspid valve. Mild tricuspid valve regurgitation. Pulmonic Valve Pulmonic valve not well visualized. Pericardium Normal pericardium without effusion. Aorta Normal ascending aorta dimension. CONCLUSIONS Normal left ventricular size, systolic function and wall thickness, with no regional wall motion abnormalities. Grade I/IV diastolic dysfunction (abnormal relaxation filling pattern), normal to mildly elevated filling pressures. Left ventricular ejection fraction is estimated at 55-60 %. Normal right ventricular size. Mildly decreased right ventricular systolic function. Moderate pulmonary hypertension, RVSP 51.1 mmHg. Normal right atrial size. Increased right atrial pressure approximately 15 mmHg. Mildly increased left atrial size. Structurally normal mitral valve. Trace mitral valve regurgitation. There are no prior echocardiogram studies to compare. Dr. Alejandro Landrum MD (Electronically Signed) Final Date: 06 September 2019 08:27 S
--- NOTE | 2019-09-06 22:07 | USCV_ITS ---
Geoffrey Manju Age: 49 Gender: F : 1970 Exam Date: 09/06/2019 06:25 Ordering Phys: Funmilayo Bangura MD Technologist: Ebonie Forman [place] [facility] [place]: SUBMASSIVE PE HISTORY: Submassive PE PROCEDURES: venous duplex imaging was performed in bilateral lower extremities. The following venous structures were evaluated: common femoral vein, profunda vein, proximal portion of the greater saphenous vein, superficial femoral vein, and the popliteal vein. In addition, the posterior tibial and peroneal trunk were evaluated. Serial compression, augmentation maneuvers, and spectral Doppler flow evaluation were performed. FINDINGS: Chronic DVT right popliteal and subacute DVT peroneal veins. All other vessels studied are compressible and have flow. CONCLUSIONS Chronic DVT right popliteal and subacute DVT peroneal veins. Dr. Rose Donnelly DO (Electronically Signed) Final Date: 06 September 2019 09:28 S
[2019-09-06 22:11] LABS: Glucose Point of Care 192 mg/dL (70-110)
[2019-09-07] VITALS (21 sets, daily range): BP systolic 102–143; BP diastolic 60–95; PULSE 66–90; RESP 17–30; TEMP 36.2–36.8; O2SAT 92–97
[2019-09-07 00:48] LABS: Partial Thromboplastin Time 59.7 SECONDS (23.9-36.7)
[2019-09-07 05:33] LABS: Basophils # 0.1 10^3/uL (0.0-0.1); Basophils % 0.6 %; Eosinophils # 0.2 10^3/uL (0.0-0.8); Hemoglobin 14.3 g/dL (11.5-15.3); Lymphocytes # 4.7 10^3/uL (0.8-4.8); Lymphocytes % 43.1 %; Mean Corpuscular HGB Conc 33.3 g/dL (30.0-36.0); Mean Corpuscular Hemoglobin 32.2 pg (28.0-34.0); Mean Corpuscular Volume 96.8 fL (81-99); Mean Platelet Volume 9.9 fL (7.4-10.4); Monocytes # 0.6 10^3/uL (0.2-0.9); Monocytes % 5.7 %; Neutrophils # 5.2 10^3/uL (1.8-7.7); Neutrophils % 48.2 %; Nucleated Red Blood Cells % 0 %; Platelet Count 238 10^3/cmm (130-400); Red Blood Count 4.44 10^6/uL (4.1-5.3); Red Cell Distribution Width 12.1 % (12.1-15.1); White Blood Count 10.8 10^3/uL (4.0-10.0)
[2019-09-07 05:48] LABS: INR 1.02 (0.8-1.2)
[2019-09-07 07:29] LABS: Glucose Point of Care 196 mg/dL (70-110)
--- NOTE | 2019-09-07 08:30 | PC.NURSE ---
Pt in the middle of bath. Will administer insulin when finished.
--- NOTE | 2019-09-07 08:42 | PM.PN ---
Subjective Subjective: Interval history: Hemodynamically stable, on RA, bridging with heparin drip and coumadin, INR-1.02. Resting in bed, no apparent distress, would like to ambulate some and did sit up in a chair this AM. Has been on NC off and on. Medications: Reviewed: Yes Medication Review Details: Active Medications Generic Name Dose Route Start Last Admin Trade Name Freq PRN Reason Stop Dose Admin Atorvastatin Calci um 20 mg 09/06/19 09:00 09/06/19 09:01 Lipitor PO 20 mg DAILY LAURA Administration Dextrose 25 ml 09/05/19 22:07 D50w IVP ONCE PRN hypoglycemia prot ocol Protocol Dextrose 50 ml 09/05/19 22:07 D50w IVP PRN PRN hypoglycemia prot ocol Protocol Duloxetine HCl 60 mg 09/06/19 09:00 09/06/19 18:32 Cymbalta PO 60 mg BID LAURA Administration Gabapentin 400 mg 09/05/19 22:07 09/06/19 22:03 Neurontin PO 400 mg TID LAURA Administration Glucagon 1 mg 09/05/19 22:07 Glucagen IM ONCE PRN Adult Acute Hypog lycemia Prot. Protocol Heparin Sodium (Be ef Lung) 0 unit 09/05/19 22:07 09/05/19 22:49 Heparin IV 6,300 unit PRN PRN Administration Heparin weight-ba se protocol Protocol Dextrose 500 mls @ 100 mls /hr 09/05/19 22:07 D5w IV ONCE PRN Adult Acute Hypog lycemia Prot Protocol Heparin Sodium/Sod ium Chloride 25,000 unit in 50 0 mls @ 0 mls/hr 09/05/19 22:07 09/06/19 14:11 Heparin Drip IV 13.18 unit/kg/hr .Q0M LAURA 33 mls/hr Titration Protocol Per Protocol Ceftriaxone Sodium 1,000 mg/ 50 mls @ 100 mls/ hr 09/06/19 09:00 09/06/19 09:01 Sodium Chloride IV 100 mls/hr DAILY LAURA Administration Protocol Insulin Aspart 0 unit 09/05/19 22:07 09/06/19 22:03 Novolog SUBCUT 6 unit WM&BEDTIME LAURA Administration Protocol Methocarbamol 750 mg 09/06/19 21:00 09/06/19 22:03 Robaxin PO 750 mg TID LAURA Administration Pantoprazole Sodiu m 40 mg 09/06/19 10:00 09/06/19 18:32 Protonix PO 40 mg BID LAURA Administration Warfarin Sodium 5 mg 09/06/19 14:00 09/06/19 15:55 Coumadin PO 5 mg DAILY@1400 LAURA Administration erythromycin base Allergy (Severe, Verified 09/05/19 14:42) ALGY-Anaphylaxis Penicillins Allergy (Severe, Verified 09/05/19 14:42) ALGY-Anaphylaxis tetracycline Allergy (Severe, Verified 09/05/19 14:42) ALGY-Anaphylaxis shellfish derived Allergy (Intermediate, Verified 09/05/19 14:42) ALGY-Hives insect venom Allergy (Mild, Verified 09/05/19 14:42) ALGY-Swell Lip/Tongue/Throat Vitals/I&O/Wt Last Vital Signs Temp 98.7 F 09/06/19 20:30 Pulse 66 09/07/19 06:00 Resp 18 09/07/19 06:00 BP 143/82 09/07/19 06:00 Pulse Ox 94 09/07/19 06:00 09/06/19 09/07/19 09/07/19 22:59 06:59 14:59 Intake Total 240 / 864.5 Balance 240 / 864.5 Weight last 48 hrs Weight 125.191 kg Physical Exam Const: COMMON NORMALS: no acute distress, patient oriented x3 and alert GENERAL APPEARANCE: cooperative and comfortable NUTRITIONAL APPEARANCE: obese morbidly obese ORIENTATION/CONSCIOUSNESS: Yes awake HENMT: COMMON NORMALS: normocephalic, atraumatic, hearing grossly normal bilaterally and moist oral mucous membranes HEAD & SCALP: normocephalic and atraumatic Eye: COMMON NORMALS: Equal, round and reactive pupils present, EOMs intact bilaterally and conjunctivae normal CONJUNCTIVA: Yes conjunctivae normal PUPIL: Yes Equal, round and reactive pupils present Neck/C-Spine: COMMON NORMALS: full ROM GENERAL: Yes normal visual inspection and Yes trachea midline OTHER: -short, thick neck Chest: CHEST: Yes Symmetrical chest wall rise Resp: COMMON NORMALS: normal respiratory effort, No retractions, No use of accessory muscles and clear to auscultation bilaterally EFFORT & INSPECTION: Yes able to speak in complete sentences, Yes symmetric chest movement and No tachypneic AUSCULTATION: clear to auscultation bilaterally OTHER: -on 2 L NC Cardio: COMMON NORMALS: regular rate, regular rhythm, S1 normal heart sound present, S2 normal heart sound present and No murmurs present (Cardio) RATE: regular rate RHYTHM: regular rhythm HEART SOUNDS: S1 normal heart sound present and S2 normal heart sound present GI: COMMON NORMALS: Normal to inspection, nondistended, normoactive bowel sounds present, Soft to palpation and non-tender INSPECTION: Yes central obesity PALPATION: Yes Soft to palpation Extremity: COMMON NORMALS: normal to inspection, full ROM, no clubbing, cyanosis or edema and no pedal edema Neuro: COMMON NORMALS: patient oriented x3, moves all extremities, no focal motor deficits and no sensory deficits noted SENSORIUM/ORIENTATION: Yes alert Psych: COMMON NORMALS: mental status grossly normal, Normal thought process present, cooperative, normal affect and speech normal SPEECH: Yes normal speech THOUGHT PROCESS: Normal thought process present Skin: COMMON NORMALS: no rashes or lesions noted, no jaundice, no petechiae and no mottling GENERAL SKIN EXAM: no rashes or lesions noted Data : 09/07/19 04:50 09/06/19 04:30 A&P Assessment and plan (1) Pulmonary embolism: -Has reported history of prior PE and right lower extremity DVT both of which required post-op, previously treated with Coumadin -CTA noted with bilateral acute PE, greater clot burden on the right, evidence of right heart strain -Venous duplex shows chronic DVT in the right popliteal and subacute DVT in peroneal veins -Will need lifelong anticoagulation -Currently on heparin drip, start on Coumadin, daily INR with goal of 2-3. Coumadin would likely be a good option due to body habitus; she would prefer not to use injection form of AC i.e. Lovenox -Echo: EF=55-60%, no RWMA, G1DD, moderate pulmonary HTN (51), trace MR, mild TR -greatest risk factors are likely morbid obesity, sedentary lifestyle; reports maternal family history of hypercoaguloble state -hemodynamically stable; continue to monitor vital signs -continue to monitor respiratory status, supplemental oxygen as needed Status: Acute Qualifiers: Acute cor pulmonale presence: unspecified Chronicity: acute Pulmonary embolism type: unspecified Qualified Code(s): I26.99 - Other pulmonary embolism without acute cor pulmonale (2) UTI (urinary tract infection): -symptomatic: dysuria, pruritus -UA indicative of infection -urine cx: GNRs; pending ID & sensitivity -on Ceftriaxone Status: Acute Qualifiers: Hematuria presence: without hematuria Urinary tract infection type: acute cystitis Qualified Code(s): N30.00 - Acute cystitis without hematuria (3) Essential hypertension: -hemodynamically stable -resume low dose ACEi, Lasix; hold HCTZ -continue to monitor vital signs Status: Chronic (4) Type 2 diabetes mellitus: -A1c-7.6 -not insulin dependent; hold metformin due to contrast study -ISS, accucheks, hypoglycemia precautions -consistent carb diet as tolerated Status: Chronic Qualifiers: Diabetes mellitus complication status: with other specified complication Diabetes mellitus longterm insulin use: without longterm use Qualified Code(s): E11.69 - Type 2 diabetes mellitus with other specified complication (5) Morbid obesity: -BMI-47 kg/m2 with associated comorbidities as noted -ambulates with walker for short distances, pending electric WC home delivery -fall precautions Status: Chronic (6) Tobacco abuse: -1 PPD -working on quitting, has been on Chantix Status: Chronic (7) Hyperlipidemia: -noted lipid panel -on statin Status: Chronic Qualifiers: Hyperlipidemia type: mixed hyperlipidemia Qualified Code(s): E78.2 - Mixed hyperlipidemia (8) GERD (gastroesophageal reflux disease): -reported hx of Claire's esophagus -has been following up with Dr. Busch and was scheduled for EGD this week, rescheduled -on PPI Status: Chronic Qualifiers: Esophagitis presence: without esophagitis Qualified Code(s): K21.9 - Gastro-esophageal reflux disease without esophagitis (9) Depression, controlled: -continue Cymbalta Status: Chronic (10) COPD (chronic obstructive pulmonary disease): -not oxygen dependent at baseline -continue to monitor respiratory status, supplemental oxygen as needed -no acute exacerbation Status: Chronic Qualifiers: COPD type: chronic bronchitis Chronic bronchitis type: simple Qualified Code(s): J41.0 - Simple chronic bronchitis (11) Hepatic steatosis: -diffuse hepatic steatosis noted on imaging, mild transaminitis Status: Chronic (12) History of Claire's esophagus: Status: Chronic Additional A&P Information -Chronic diastolic CHF: no acute exacerbation, BNP elevation likely secondary to acute PE -hx of migraine headaches -GI ppx with PPI -no need for DVT ppx as on therapeutic AC -Dispo: home; may need HH if need to continue bridging -Code status: FULL code -transfer to floor for continued care Attestations Medical Necessity Statement*: Patient requires hospitalization for continued bridging anticoagulation secondary to bilateral PE and RLE DVT as well as treatment of UTI pending urine culture results. Time Spent in Patient Care: 16 - 35 minutes (>than 50% of time spent in counselling and/or direct pt care on unit). Coding Level of Care Code Acute Freelance Director for Chg Fwd Exam Comprehensive Diagnoses Pulmonary embolism I26.99 Acute cor pulmonale presence: unspecified Chronicity: acute Pulmonary embolism type: unspecified UTI (urinary tract infection) N30.00 Hematuria presence: without hematuria Urinary tract infection type: acute cystitis Essential hypertension I10 Type 2 diabetes mellitus E11.69 Diabetes mellitus complication status: with other specified complication Diabetes mellitus watermelon inspector insulin use: without watermelon inspector use Morbid obesity E66.01 Tobacco abuse Z72.0 Hyperlipidemia E78.2 Hyperlipidemia type: mixed hyperlipidemia GERD (gastroesophageal reflux disease) K21.9 Esophagitis presence: without esophagitis Depression, controlled F32.9 COPD (chronic obstructive pulmonary disease) J41.0 COPD type: chronic bronchitis Chronic bronchitis type: simple Hepatic steatosis K76.0 History of Claire's esophagus Z87.19
[2019-09-07] MEDS: atorvastatin 40 mg Tablet 20 MG PO (09:04)
[2019-09-07] MEDS: pantoprazole DR 40 mg Tablet PO ×2 (09:04→17:06)
[2019-09-07] MEDS: duloxetine 60 mg Capsule PO ×2 (09:04→17:06)
[2019-09-07] MEDS: cefTRIAXone 1,000 MG in sodium chloride 0.9% (plus) 50 ML 100 MG IV (09:04)
[2019-09-07] MEDS: gabapentin 400 mg Capsule PO ×3 (09:04→21:44)
[2019-09-07] MEDS: FUROsemide 20 mg Tablet PO (09:06)
[2019-09-07] MEDS: lisinopril 20 mg Tablet PO (09:06)
[2019-09-07] MEDS: methocarbamol 750 mg Tablet PO ×3 (09:09→21:43)
[2019-09-07 11:53] LABS: Glucose Point of Care 206 mg/dL (70-110)
[2019-09-07] MEDS: warfarin 5 mg Tablet PO (14:43)
--- NOTE | 2019-09-07 15:40 | PC.NURSE ---
Pt transferred to [facility] via WC. Charge nurse at bedside. Pt tolerated well. Good spirits. No needs/questions voiced. No S/S of distress.
[2019-09-07 15:59] LABS: Partial Thromboplastin Time 58.8 SECONDS (23.9-36.7)
--- NOTE | 2019-09-07 16:10 | PC.RESP ---
SMOKING CESSATION AND PULMONARY REHAB INFORMATION SENT TO PATIENT.
[2019-09-07 17:17] LABS: Glucose Point of Care 184 mg/dL (70-110)
[2019-09-07] MEDS: heparin drip 25,000 UNIT/500 ML PREMIX 36 UNIT IV (20:19)
[2019-09-07 21:10] LABS: Glucose Point of Care 210 mg/dL (70-110)
[2019-09-07 23:44] LABS: INR 1.04 (0.8-1.2)
[2019-09-08] VITALS: BP 128/72; PULSE 92; RESP 19; TEMP 36.5; O2SAT 90
[2019-09-08 00:18] LABS: Partial Thromboplastin Time 58.5 SECONDS (23.9-36.7)
[2019-09-08 04:00] VITALS: BP 123/79; PULSE 71; RESP 20; TEMP 36.8; O2SAT 94
[2019-09-08 06:32] LABS: Glucose Point of Care 168 mg/dL (70-110)
[2019-09-08 07:09] LABS: Partial Thromboplastin Time 60.2 SECONDS (23.9-36.7)
[2019-09-08 07:37] LABS: INR 1.07 (0.8-1.2)
[2019-09-08 08:00] VITALS: BP 123/74; PULSE 74; RESP 18; TEMP 36.6; O2SAT 93
[2019-09-08] MEDS: atorvastatin 40 mg Tablet 20 MG PO (09:56)
[2019-09-08] MEDS: pantoprazole DR 40 mg Tablet PO ×2 (09:57→17:49)
[2019-09-08] MEDS: cefTRIAXone 1,000 MG in sodium chloride 0.9% (plus) 50 ML 50 MG IV (09:57)
[2019-09-08] MEDS: gabapentin 400 mg Capsule PO ×3 (09:57→21:54)
[2019-09-08] MEDS: duloxetine 60 mg Capsule PO ×2 (09:57→17:49)
[2019-09-08] MEDS: methocarbamol 750 mg Tablet PO ×3 (09:57→21:54)
[2019-09-08] MEDS: lisinopril 20 mg Tablet PO (09:57)
[2019-09-08] MEDS: FUROsemide 20 mg Tablet PO (09:57)
[2019-09-08] MEDS: heparin drip 25,000 UNIT/500 ML PREMIX 36 UNIT IV (10:25)
[2019-09-08 11:00] LABS: Glucose Point of Care 201 mg/dL (70-110)
[2019-09-08 11:26] VITALS: BP 114/70; PULSE 73; RESP 18; TEMP 37.1; O2SAT 91
--- NOTE | 2019-09-08 11:57 | DCPLANNER ---
Pg 2 of IM updated and explained to pt. She has never heard of it, appreciates the explanation. Copy provided.
[2019-09-08 15:06] LABS: Partial Thromboplastin Time 53.2 SECONDS (23.9-36.7)
[2019-09-08] MEDS: heparin 5,000 unit/mL INJ 1 mL IV (15:42)
[2019-09-08 16:00] VITALS: BP 109/69; PULSE 66; RESP 18; TEMP 36.7
--- NOTE | 2019-09-08 16:14 | P.PN_ITS ---
Subjective Subjective: Interval history: Hemodynamically stable, bridging with heparin drip and coumadin continues, INR-1.07. Resting in bed, no apparent distress. Has been on NC off and on. Urine cx results noted. Medications: Reviewed: Yes Medication Review Details: Active Medications Generic Name Dose Route Start Last Admin Trade Name Freq PRN Reason Stop Dose Admin Atorvastatin Calci um 20 mg 09/06/19 09:00 09/06/19 09:01 Lipitor PO 20 mg DAILY LAURA Administration Dextrose 25 ml 09/05/19 22:07 D50w IVP ONCE PRN hypoglycemia prot ocol Protocol Dextrose 50 ml 09/05/19 22:07 D50w IVP PRN PRN hypoglycemia prot ocol Protocol Duloxetine HCl 60 mg 09/06/19 09:00 09/06/19 18:32 Cymbalta PO 60 mg BID LAURA Administration Gabapentin 400 mg 09/05/19 22:07 09/06/19 22:03 Neurontin PO 400 mg TID LAURA Administration Glucagon 1 mg 09/05/19 22:07 Glucagen IM ONCE PRN Adult Acute Hypog lycemia Prot. Protocol Heparin Sodium (Be ef Lung) 0 unit 09/05/19 22:07 09/05/19 22:49 Heparin IV 6,300 unit PRN PRN Administration Heparin weight-ba se protocol Protocol Dextrose 500 mls @ 100 mls /hr 09/05/19 22:07 D5w IV ONCE PRN Adult Acute Hypog lycemia Prot Protocol Heparin Sodium/Sod ium Chloride 25,000 unit in 50 0 mls @ 0 mls/hr 09/05/19 22:07 09/06/19 14:11 Heparin Drip IV 13.18 unit/kg/hr .Q0M LAURA 33 mls/hr Titration Protocol Per Protocol Ceftriaxone Sodium 1,000 mg/ 50 mls @ 100 mls/ hr 09/06/19 09:00 09/06/19 09:01 Sodium Chloride IV 100 mls/hr DAILY LAURA Administration Protocol Insulin Aspart 0 unit 09/05/19 22:07 09/06/19 22:03 Novolog SUBCUT 6 unit WM&BEDTIME LAURA Administration Protocol Methocarbamol 750 mg 09/06/19 21:00 09/06/19 22:03 Robaxin PO 750 mg TID LAURA Administration Pantoprazole Sodiu m 40 mg 09/06/19 10:00 09/06/19 18:32 Protonix PO 40 mg BID LAURA Administration Warfarin Sodium 5 mg 09/06/19 14:00 09/06/19 15:55 Coumadin PO 5 mg DAILY@1400 LAURA Administration erythromycin base Allergy (Severe, Verified 09/05/19 14:42) ALGY-Anaphylaxis Penicillins Allergy (Severe, Verified 09/05/19 14:42) ALGY-Anaphylaxis tetracycline Allergy (Severe, Verified 09/05/19 14:42) ALGY-Anaphylaxis shellfish derived Allergy (Intermediate, Verified 09/05/19 14:42) ALGY-Hives insect venom Allergy (Mild, Verified 09/05/19 14:42) ALGY-Swell Lip/Tongue/Throat Vitals/I&O/Wt Last Vital Signs Temp 98.8 F 09/08/19 11:26 Pulse 73 09/08/19 11:26 Resp 18 09/08/19 11:26 BP 114/70 09/08/19 11:26 Pulse Ox 91 09/08/19 11:26 09/08/19 09/08/19 09/08/19 06:59 14:59 22:59 Intake Total 1100 / 1100 50 / 1150 Output Total Balance 1099 / 1099 50 / 1149 Physical Exam Const: COMMON NORMALS: no acute distress, patient oriented x3 and alert GENERAL APPEARANCE: cooperative and comfortable NUTRITIONAL APPEARANCE: obese morbidly obese ORIENTATION/CONSCIOUSNESS: Yes awake HENMT: COMMON NORMALS: normocephalic, atraumatic, hearing grossly normal bilaterally and moist oral mucous membranes HEAD & SCALP: normocephalic and atraumatic Eye: COMMON NORMALS: Equal, round and reactive pupils present, EOMs intact bilaterally and conjunctivae normal CONJUNCTIVA: Yes conjunctivae normal PUPIL: Yes Equal, round and reactive pupils present Neck/C-Spine: COMMON NORMALS: full ROM GENERAL: Yes normal visual inspection and Yes trachea midline OTHER: -short, thick neck Chest: CHEST: Yes Symmetrical chest wall rise Resp: COMMON NORMALS: normal respiratory effort, No retractions, No use of accessory muscles and clear to auscultation bilaterally EFFORT & INSPECTION: Yes able to speak in complete sentences, Yes symmetric chest movement and No tachypneic AUSCULTATION: clear to auscultation bilaterally OTHER: -on RA Cardio: COMMON NORMALS: regular rate, regular rhythm, S1 normal heart sound present, S2 normal heart sound present and No murmurs present (Cardio) RATE: regular rate RHYTHM: regular rhythm HEART SOUNDS: S1 normal heart sound present and S2 normal heart sound present GI: COMMON NORMALS: Normal to inspection, nondistended, normoactive bowel sounds present, Soft to palpation and non-tender INSPECTION: Yes central obesity PALPATION: Yes Soft to palpation Extremity: COMMON NORMALS: normal to inspection, full ROM, no clubbing, cyanos is or edema and no pedal edema Neuro: COMMON NORMALS: patient oriented x3, moves all extremities, no focal motor deficits and no sensory deficits noted SENSORIUM/ORIENTATION: Yes alert Psych: COMMON NORMALS: mental status grossly normal, Normal thought process present, cooperative, normal affect and speech normal SPEECH: Yes normal speech THOUGHT PROCESS: Normal thought process present Skin: COMMON NORMALS: no rashes or lesions noted, no jaundice, no petechiae and no mottling GENERAL SKIN EXAM: no rashes or lesions noted Data : 09/07/19 04:50 09/06/19 04:30 Micro: Microbiology 09/05/19 17:45 Urine Culture - Final Urine,Clean Catch Escherichia coli A&P Assessment and plan (1) Pulmonary embolism: -Has reported history of prior PE and right lower extremity DVT both of which required post-op, previously treated with Coumadin -CTA noted with bilateral acute PE, greater clot burden on the right, evidence of right heart strain -Venous duplex shows chronic DVT in the right popliteal and subacute DVT in peroneal veins -Will need lifelong anticoagulation -bridging with heparin drip, Coumadin, daily INR with goal of 2-3. Coumadin would likely be a good option due to body habitus, extent of clot burden; she would prefer not to use injection form of AC i.e. Lovenox -Echo: EF=55-60%, no RWMA, G1DD, moderate pulmonary HTN (51), trace MR, mild TR -greatest risk factors are likely morbid obesity, sedentary lifestyle; reports maternal family history of hypercoaguloble state -hemodynamically stable; continue to monitor vital signs -continue to monitor respiratory status, supplemental oxygen as needed Status: Acute Qualifiers: Acute cor pulmonale presence: unspecified Chronicity: acute Pulmonary embolism type: unspecified Qualified Code(s): I26.99 - Other pulmonary embolism without acute cor pulmonale (2) UTI (urinary tract infection): -symptomatic: dysuria, pruritus -UA indicative of infection -urine cx: haider-sensitive E.coli -d/c Ceftriaxone; switch to Cefuroxime Status: Acute Qualifiers: Hematuria presence: without hematuria Urinary tract infection type: acute cystitis Qualified Code(s): N30.00 - Acute cystitis without hematuria (3) Essential hypertension: -hemodynamically stable -on low dose ACEi, Lasix; hold HCTZ -continue to monitor vital signs Status: Chronic (4) Type 2 diabetes mellitus: -A1c-7.6 -not insulin dependent; hold metformin due to contrast study -ISS, accucheks, hypoglycemia precautions -consistent carb diet as tolerated Status: Chronic Qualifiers: Diabetes mellitus complication status: with other specified complication Diabetes mellitus shelter insulin use: without buttermaker continuous churn use Qualified Code(s): E11.69 - Type 2 diabetes mellitus with other specified complication (5) Morbid obesity: -BMI-47 kg/m2 with associated comorbidities as noted -ambulates with walker for short distances, pending electric WC home delivery -fall precautions Status: Chronic (6) Tobacco abuse: -1 PPD -working on quitting, has been on Chantix Status: Chronic (7) Hyperlipidemia: -noted lipid panel -on statin Status: Chronic Qualifiers: Hyperlipidemia type: mixed hyperlipidemia Qualified Code(s): E78.2 - Mixed hyperlipidemia (8) GERD (gastroesophageal reflux disease): -reported hx of Claire's esophagus -has been following up with Dr. Busch and was scheduled for EGD this week, rescheduled -on PPI Status: Chronic Qualifiers: Esophagitis presence: without esophagitis Qualified Code(s): K21.9 - Gastro-esophageal reflux disease without esophagitis (9) Depression, controlled: -continue Cymbalta Status: Chronic (10) COPD (chronic obstructive pulmonary disease): -not oxygen dependent at baseline -continue to monitor respiratory status, supplemental oxygen as needed -no acute exacerbation Status: Chronic Qualifiers: COPD type: chronic bronchitis Chronic bronchitis type: simple Qualified Code(s): J41.0 - Simple chronic bronchitis (11) Hepatic steatosis: -diffuse hepatic steatosis noted on imaging, mild transaminitis Status: Chronic (12) History of Claire's esophagus: Status: Chronic Additional A&P Information -Chronic diastolic CHF: no acute exacerbation, BNP elevation likely secondary to acute PE -hx of migraine headaches -GI ppx with PPI -no need for DVT ppx as on therapeutic AC -Dispo: home; may need HH if need to continue bridging -Code status: FULL code Attestations Medical Necessity Statement*: Patient requires hospitalization for continued bridging anticoagulation with heparin drip and Coumadin secondary to acute bilateral PE and RLE DVT. Time Spent in Patient Care: 16 - 35 minutes (>than 50% of time spent in counselling and/or direct pt care on unit) . Coding Level of Care Code Acute Package Worker for Chg Fwd Exam Comprehensive Diagnoses Pulmonary embolism I26.99 Acute cor pulmonale presence: unspecified Chronicity: acute Pulmonary embolism type: unspecified UTI (urinary tract infection) N30.00 Hematuria presence: without hematuria Urinary tract infection type: acute cystitis Essential hypertension I10 Type 2 diabetes mellitus E11.69 Diabetes mellitus complication status: with other specified complication Diabetes mellitus buttermaker continuous churn insulin use: without shelter use Morbid obesity E66.01 Tobacco abuse Z72.0 Hyperlipidemia E78.2 Hyperlipidemia type: mixed hyperlipidemia GERD (gastroesophageal reflux disease) K21.9 Esophagitis presence: without esophagitis Depression, controlled F32.9 COPD (chronic obstructive pulmonary disease) J41.0 COPD type: chronic bronchitis Chronic bronchitis type: simple Hepatic steatosis K76.0 History of Claire's esophagus Z87.19
[2019-09-08 16:59] LABS: Glucose Point of Care 151 mg/dL (70-110)
[2019-09-08] MEDS: cefUROXime 250 mg Tablet PO (17:49)
[2019-09-08 20:00] VITALS: BP 112/68; PULSE 69; RESP 18; TEMP 36.6; O2SAT 96
[2019-09-08 21:25] LABS: Glucose Point of Care 150 mg/dL (70-110)
[2019-09-08 21:32] LABS: Partial Thromboplastin Time 63.8 SECONDS (23.9-36.7)
[2019-09-09] VITALS: BP 108/68; PULSE 71; RESP 18; TEMP 36.8; O2SAT 96
[2019-09-09 03:46] LABS: Platelet Count 226 10^3/cmm (130-400)
[2019-09-09 04:00] VITALS: BP 114/68; PULSE 74; RESP 17; TEMP 36.6; O2SAT 95
[2019-09-09 04:05] LABS: Partial Thromboplastin Time 70.4 SECONDS (23.9-36.7)
[2019-09-09 04:06] LABS: INR 1.17 (0.8-1.2)
[2019-09-09 06:44] LABS: Glucose Point of Care 151 mg/dL (70-110)
[2019-09-09 07:36] VITALS: BP 145/85; PULSE 72; RESP 17; TEMP 36.7; O2SAT 94
[2019-09-09] MEDS: cefUROXime 250 mg Tablet PO (08:10)
[2019-09-09] MEDS: atorvastatin 40 mg Tablet 20 MG PO (08:10)
[2019-09-09] MEDS: gabapentin 400 mg Capsule PO ×2 (08:11→14:58)
[2019-09-09] MEDS: pantoprazole DR 40 mg Tablet PO (08:11)
[2019-09-09] MEDS: duloxetine 60 mg Capsule PO (08:11)
[2019-09-09] MEDS: methocarbamol 750 mg Tablet PO ×2 (08:11→14:58)
[2019-09-09] MEDS: FUROsemide 20 mg Tablet PO (08:11)
[2019-09-09] MEDS: lisinopril 20 mg Tablet PO (08:11)
--- NOTE | 2019-09-09 09:52 | PC.CHAP ---
Pastoral Care Encounter/Spiritual Assessment Type of Contact [] Declined planning assistant visit [] Patient/Family/Request visit [] Outpatient visit [] Follow-up visit [] Physician referral [] Code/Alert [x] Routine visit [] Staff referral [] Actively dying [] Patient sleeping [] Family support [] [] Out of room [] Palliative care [] [] Receiving care in room [] Pre-surgical visit [] Trauma [] Long length of stay [] ICU visit [] Other: Relational/Emotional Strength [] Patient feels connected with others/family/visitors/staff [] Distress [] Loneliness/isolation [] Abandonment Spirituality of Patient [] Person of [place] [] Attends Baptism of their [place] [] Believes in Prayer [] Reads Bible or Buddhist materials [] There are Spiritual issues to be addressed Internet Network Specialist Interventions [x] Prayer [] Active listening [] Non-anxious presence [] Spiritual/emotional support [] Crisis/trauma care [] Spiritual counseling [] Bereavement support [] Provided bereavement packet [] Provided Bible/devotional materials [] Provided toy/stuffed animal, coloring book to patient or family member [] Provided Communion [] Anointing/[place] [] Salvation [x] Completed spiritual assessment [] Other: Impact on Illness or Injury [] Angry [] Fearful [] Anxious [] Often cries [] Exhaustion [] Unable to work [] Unable to attend denominational [] Unable to walk/stand [] Unable to read [] Unable to drive [] Unable to eat/drink [] Unable to sleep [] Unable to be with family [] Patient intubated [] Other: Summary Patient resting. Good spirits Time spent with patient 10 min
[2019-09-09 10:27] LABS: Partial Thromboplastin Time 82.9 SECONDS (23.9-36.7)
[2019-09-09 11:12] LABS: Glucose Point of Care 186 mg/dL (70-110)
[2019-09-09 11:22] VITALS: PULSE 92; RESP 18; O2SAT 94
[2019-09-09 12:00] VITALS: BP 123/77; PULSE 76; RESP 17; TEMP 36.3; O2SAT 95
[2019-09-09] MEDS: warfarin 10 mg Tablet PO (13:30)
--- NOTE | 2019-09-09 14:40 | PM.DCS ---
Discharge Providers Date of Admission: 09/05/19 19:28 Date of Discharge: September 09, 2019 Attending Provider at Admission: Funmilayo Bangura MD Attending Provider at Discharge: Lena Cameron MD Primary Care Provider: Jamee Landin MD Diagnoses at Discharge Discharge Diagnosis (1) Pulmonary embolism: Status: Acute Problem details: -Has reported history of prior PE and right lower extremity DVT both of which required post-op, previously treated with Coumadin -CTA noted with bilateral acute PE, greater clot burden on the right, evidence of right heart strain -Venous duplex shows chronic DVT in the right popliteal and subacute DVT in peroneal veins -Will need lifelong anticoagulation -bridging with heparin drip, Coumadin, daily INR with goal of 2-3. Coumadin would likely be a good option due to body habitus, extent of clot burden; she is now agreeable to taking Lovenox to continue bridging process -Echo: EF=55-60%, no RWMA, G1DD, moderate pulmonary HTN (51), trace MR, mild TR -greatest risk factors are likely morbid obesity, sedentary lifestyle; reports maternal family history of hypercoaguloble state -hemodynamically stable; continue to monitor vital signs -continue to monitor respiratory status, supplemental oxygen as needed Qualifiers: Acute cor pulmonale presence: unspecified Chronicity: acute Pulmonary embolism type: unspecified Qualified Code(s): I26.99 - Other pulmonary embolism without acute cor pulmonale (2) UTI (urinary tract infection): Status: Acute Problem details: -symptomatic: dysuria, pruritus -UA indicative of infection -urine cx: haider-sensitive E.coli -d/c Ceftriaxone; on Cefuroxime Qualifiers: Urinary tract infection type: acute cystitis Hematuria presence: without hematuria Qualified Code(s): N30.00 - Acute cystitis without hematuria (3) Essential hypertension: Status: Chronic Problem details: -hemodynamically stable -on low dose ACEi, Lasix; hold HCTZ -continue to monitor vital signs (4) Type 2 diabetes mellitus: Status: Chronic Problem details: -A1c-7.6 -not insulin dependent; hold metformin due to contrast study; can resume on d/c -ISS, accucheks, hypoglycemia precautions -consistent carb diet as tolerated Qualifiers: Diabetes mellitus residential insulin use: without residential use Diabetes mellitus complication status: with other specified complication Qualified Code(s): E11.69 - Type 2 diabetes mellitus with other specified complication (5) Morbid obesity: Status: Chronic Problem details: -BMI-47 kg/m2 with associated comorbidities as noted -ambulates with walker for short distances, pending electric WC home delivery -fall precautions (6) Tobacco abuse: Status: Chronic Problem details: -1 PPD -working on quitting, has been on Chantix (7) Hyperlipidemia: Status: Chronic Problem details: -noted lipid panel -on statin Qualifiers: Hyperlipidemia type: mixed hyperlipidemia Qualified Code(s): E78.2 - Mixed hyperlipidemia (8) GERD (gastroesophageal reflux disease): Status: Chronic Problem details: -reported hx of Claire's esophagus -has been following up with Dr. Busch and was scheduled for EGD this week, rescheduled -on PPI Qualifiers: Esophagitis presence: without esophagitis Qualified Code(s): K21.9 - Gastro-esophageal reflux disease without esophagitis (9) Depression, controlled: Status: Chronic Problem details: -continue Cymbalta (10) COPD (chronic obstructive pulmonary disease): Status: Chronic Problem details: -not oxygen dependent at baseline -continue to monitor respiratory status, supplemental oxygen as needed -no acute exacerbation Qualifiers: COPD type: chronic bronchitis Chronic bronchitis type: simple Qualified Code(s): J41.0 - Simple chronic bronchitis (11) Hepatic steatosis: Status: Chronic Problem details: -diffuse hepatic steatosis noted on imaging, mild transaminitis (12) History of Claire's esophagus: Status: Chronic Other Information Additional DC diagnoses/information: -Chronic diastolic CHF: no acute exacerbation, BNP elevation likely secondary to acute PE -hx of migraine headaches Reason for Visit Reason for Visit: yellowing skin/abd pain Hospital Course Hospital Course: Patient was initially admitted to ICU due to noted bilateral acute PE with evidence of right ventricular heart strain as well as right lower extremity DVT and need for close monitoring of hemodynamic and respiratory status. She was started on therapeutic anticoagulation with heparin drip and Coumadin, she declined Lovenox for bridging purposes. Coumadin was chosen due to patient having taken this in the past and due to her body habitus. INR was checked daily and her latest one is 1.17. She will need to continue to have her INR monitored particularly during the bridging process. She is more agreeable to Lovenox injections which have been initiated today. Home health services have been requested for INR checks. She was also found to have UTI, initially treated with ceftriaxone then switched to cefuroxime once urine culture results were available as noted above. She did require some supplemental oxygen support particularly within the first 24 hours of admission, this is since been discontinued and she has remained hemodynamically stable. She was transferred to the floor for continued care and bridging anticoagulation. Given her overall stability, been agreeable to taking Lovenox over the next few days to complete the bridging process, patient will be discharged home this afternoon. Will request PCP follow-up on Thursday if possible. Patient has been counseled on need to seek medical attention immediately if noted bleeding, fall particularly with head trauma. Medication compliance has been strongly emphasized. Of note patient has had prior DVT and PE so will require lifelong anticoagulation. Discharge Summary: -Patient to follow up with primary care provider as soon as next available appointment Physical Exam Const: COMMON NORMALS: no acute distress, patient oriented x3 and alert GENERAL APPEARANCE: cooperative and comfortable NUTRITIONAL APPEARANCE: obese morbidly obese ORIENTATION/CONSCIOUSNESS: Yes awake HENMT: COMMON NORMALS: normocephalic, atraumatic, hearing grossly normal bilaterally and moist oral mucous membranes HEAD & SCALP: normocephalic and atraumatic Eye: COMMON NORMALS: Equal, round and reactive pupils present, EOMs intact bilaterally and conjunctivae normal CONJUNCTIVA: Yes conjunctivae normal PUPIL: Yes Equal, round and reactive pupils present Neck/C-Spine: COMMON NORMALS: full ROM GENERAL: Yes normal visual inspection and Yes trachea midline OTHER: -short, thick neck Chest: CHEST: Yes Symmetrical chest wall rise Resp: COMMON NORMALS: normal respiratory effort, No retractions, No use of accessory muscles and clear to auscultation bilaterally EFFORT & INSPECTION: Yes able to speak in complete sentences, Yes symmetric chest movement and No tachypneic AUSCULTATION: clear to auscultation bilaterally OTHER: -on RA Cardio: COMMON NORMALS: regular rate, regular rhythm, S1 normal heart sound present, S2 normal heart sound present and No murmurs present (Cardio) RATE: regular rate RHYTHM: regular rhythm HEART SOUNDS: S1 normal heart sound present and S2 normal heart sound present GI: COMMON NORMALS: Normal to inspection, nondistended, normoactive bowel sounds present, Soft to palpation and non-tender INSPECTION: Yes central obesity PALPATION: Yes Soft to palpation Extremity: COMMON NORMALS: normal to inspection, full ROM, no clubbing, cyanosis or edema and no pedal edema Neuro: COMMON NORMALS: patient oriented x3, moves all extremities, no focal motor deficits and no sensory deficits noted SENSORIUM/ORIENTATION: Yes alert Psych: COMMON NORMALS: mental status grossly normal, Normal thought process present, cooperative, normal affect and speech normal SPEECH: Yes normal speech THOUGHT PROCESS: Normal thought process present Skin: COMMON NORMALS: no rashes or lesions noted, no jaundice, no petechiae and no mottling GENERAL SKIN EXAM: no rashes or lesions noted Discharge Data Data Completed and Pending: Completed Studies During Hospitalization Category Date Time Status CT angio chest PE protcl [id number] Stat Cat Scan 09/05/19 17:46 Completed XR chest 1V asia ble [id number] Stat Exams 09/05/19 16:43 Completed CV echo complete* [id number] Routine Ultrasound 09/06/19 22:07 [place] [id number] Routin e Ultrasound 09/06/19 22:07 [place] [id number] Urgent Ultrasound 09/05/19 16:53 Completed Pending at discharge Category Date Time Status Prothrombin Time INR AM LABS Lab 09/10/19 04:00 Ordered Labs from last 24 hours 09/09/19 09/09/19 09/09/19 11:07 09:52 06:39 Plt Count PT INR APTT 82.9 H POC Glucose 186 151 09/09/19 09/09/19 09/09/19 03:20 03:20 03:20 Plt Count 226 PT 15.30 H INR 1.17 APTT 70.4 H POC Glucose 09/08/19 09/08/19 09/08/19 21:18 21:17 16:55 Plt Count PT INR APTT 63.8 H POC Glucose 150 151 09/08/19 13:45 Plt Count PT INR APTT 53.2 H POC Glucose Vitals: Last Vital Signs Temp 97.4 F L 09/09/19 12:00 Pulse 76 09/09/19 12:00 Resp 17 09/09/19 12:00 BP 123/77 09/09/19 12:00 Pulse Ox 95 09/09/19 12:00 Discharge Plan Discharge Patient Disposition: Home Health Service Condition: Stable Prescriptions: New cefuroxime axetil 250 mg tablet 250 mg PO BID 7 Days Qty: 14 RF: 0 Coumadin 7.5 mg tablet 7.5 mg PO DAILY Qty: 30 RF: 0 enoxaparin 120 mg/0.8 mL syringe 120 mg SUBCUT Q12H 5 Days Qty: 8 RF: 0 Continued budesonide-formoterol 160-4.5 mcg/actuation HFA aerosol inhaler 2 puff INHALATION BID 30 Days Qty: 10.2 RF: 5 albuterol sulfate [Ventolin HFA] 90 mcg/actuation HFA aerosol inhaler See Rx Instructions INHALATION .COMPLEX PRN (Reason: shortness of breath or wheezing) 30 Days Qty: 18 RF: 5 duloxetine 60 mg capsule,delayed release(DR/EC) 60 mg PO BID 30 Days Qty: 60 RF: 5 lisinopril 40 mg tablet 40 mg PO DAILY 30 Days Qty: 30 RF: 5 hydrochlorothiazide 25 mg tablet 25 mg PO DAILY 30 Days Qty: 30 RF: 5 furosemide [Lasix] 20 mg tablet 20 mg PO DAILY 30 Days Qty: 30 RF: 5 omeprazole 40 mg capsule,delayed release(DR/EC) 40 mg PO DAILY 90 Days Qty: 90 RF: 1 topiramate [Topamax] 50 mg tablet 50 mg PO BID 30 Days Qty: 60 RF: 5 methocarbamol 750 mg tablet 750 mg PO TID 30 Days Qty: 90 RF: 2 pravastatin 20 mg tablet 20 mg PO DAILY 90 Days Qty: 90 RF: 3 aspirin 81 mg tablet,delayed release (DR/EC) 81 mg PO DAILY RF: 0 metformin 1,000 mg tablet 1,000 mg PO BID 30 Days Qty: 60 RF: 5 varenicline 1 mg tablet 1 mg PO BID Qty: 56 RF: 0 gabapentin 400 mg Capsule 400 mg PO TID RF: 0 amitriptyline 10 mg tablet 10 mg PO BEDTIME RF: 0 cholecalciferol (vitamin D3) 1,250 mcg (50,000 unit) capsule 50,000 unit PO Q7D RF: 0 Discharge Orders: Discharge Order (Routine); Ordered 09/09/19 Ordered By: Lena Cameron Referrals: Jamee Landin MD [Primary Care Provider] - Discharge Diet: Cardiac and Diabetic Discharge Activity: Increase activity as tolerated Patient Instructions: Warfarin (By mouth), Enoxaparin (Injection) Activity Restrictions/Additional Instructions: -You will need to have your INR checked regularly with use of blood thinners. Home health nursing will be arranged to help with this -Please seek medical attention immediately if noted persistent bleeding in sputum, urine or stool, large area of bruising at site of injection (Lovenox), fall particularly with head trauma Discharge Attestations Time Spent in Discharge Care*: greater than 30 min Specific Discharge Activities: Specific discharge activities: educating patient, discussing with catalytic case operator/social workers/dc planners, documenting/other paperwork and evaluating patient/reviewing data Status at Discharge: Cognitive status at discharge: cognitively intact, Behavioral status at discharge: cooperative, Functional status at discharge: uses cane/walker (short distances) Overall status at discharge: patient is progressing back to baseline Quality Metrics Clinical Quality Measures During this hospital stay, did patient experience: VTE Contraindication to Overlap Therapy: Overlap therapy prescribed VTE Discharge Education: Education about anticoagulant therapy/Care Notes given, Education about treatment options/disease process, Medication side effects education, INR/lab monitoring education as applicable and Follow-up arranged Deep Vein Thrombosis/Pulmonary Embolism Present on Admission: Yes Coding Level of Care Code Acute Field Representative/Health Education for [facility] Fwd Diagnoses Pulmonary embolism I26.99 Acute cor pulmonale presence: unspecified Chronicity: acute Pulmonary embolism type: unspecified UTI (urinary tract infection) N30.00 Urinary tract infection type: acute cystitis Hematuria presence: without hematuria Essential hypertension I10 Type 2 diabetes mellitus E11.69 Diabetes mellitus residential insulin use: without residential use Diabetes mellitus complication status: with other specified complication Morbid obesity E66.01 Tobacco abuse Z72.0 Hyperlipidemia E78.2 Hyperlipidemia type: mixed hyperlipidemia GERD (gastroesophageal reflux disease) K21.9 Esophagitis presence: without esophagitis Depression, controlled F32.9 COPD (chronic obstructive pulmonary disease) J41.0 COPD type: chronic bronchitis Chronic bronchitis type: simple Hepatic steatosis K76.0 History of Claire's esophagus Z87.19
[2019-09-09] MEDS: enoxaparin 120 mg/0.8 mL Syringe SUBCUT (14:58)
[2019-09-09 16:05] VITALS: BP 123/77; PULSE 76; RESP 17; TEMP 36.3; O2SAT 95
== END 2019-09-09 16:25 | disposition home health service (06) | DRG 176 ==
LOC: ER 19:31 → ICU 19:48 → MEDSURG 09-07 15:32
PROVIDERS: Emergency Medicine; Family Medicine; Admitting Provider Internal Medicine; PCP Family Medicine; Visit Provider Family Medicine
DX: I26.99 Other pulmonary embolism without acute cor pulmonale (principal); I50.32 Chronic diastolic (congestive) heart failure; Z68.42 Body mass index [BMI] 45.0-49.9, adult; N30.00 Acute cystitis without hematuria; K21.9 Gastro-esophageal reflux disease without esophagitis; I11.0 Hypertensive heart disease with heart failure; K76.0 Fatty (change of) liver, not elsewhere classified; Z87.19 Personal history of other diseases of the digestive system; Z79.84 Long term (current) use of oral hypoglycemic drugs; E66.01 Morbid (severe) obesity due to excess calories; F17.210 Nicotine dependence, cigarettes, uncomplicated; E78.5 Hyperlipidemia, unspecified; J44.9 Chronic obstructive pulmonary disease, unspecified; F32.9 Major depressive disorder, single episode, unspecified; G47.33 Obstructive sleep apnea (adult) (pediatric); E11.40 Type 2 diabetes mellitus with diabetic neuropathy, unspecified; G25.81 Restless legs syndrome; E55.9 Vitamin D deficiency, unspecified
CPT/HCPCS: 12345; 36415; 36416; 71045; 71275; 80048; 80053; 81001; 82962; 83880; 84484; 85025; 85049; 85378; 85610; 85730; 87077; 87086; 87186; 93005; 93306; 93970; 94660; 96372; 96375; 99284; A9270; J0696; J1644; J1650; J1815; J2405; Q9967

== ENCOUNTER 2019-09-13 11:17 | Outpatient (CLI) | payer MEDICARE, MEDICAID, SELFPAY ==
[2019-09-13 12:41] LABS: INR 1.61 (0.8-1.2)
== END 2019-09-13 11:18 | disposition home or self-care (01) ==
LOC: LAB 11:22
PROVIDERS: PCP Family Medicine; Visit Provider Family Medicine
DX: I26.99 Other pulmonary embolism without acute cor pulmonale (principal); Z79.01 Long term (current) use of anticoagulants
CPT/HCPCS: 85610

== ENCOUNTER → 2019-10-10 14:31 | Outpatient (BNVA) | payer MEDICARE, MEDICAID, SELFPAY | PROVIDERS: PCP Family Medicine; Visit Provider Family Medicine | DX: E11.9 Type 2 diabetes mellitus without complications (principal); I10 Essential (primary) hypertension; M62.838 Other muscle spasm; F51.04 Psychophysiologic insomnia; J44.9 Chronic obstructive pulmonary disease, unspecified; E55.9 Vitamin D deficiency, unspecified; F32.9 Major depressive disorder, single episode, unspecified; K21.9 Gastro-esophageal reflux disease without esophagitis; E78.5 Hyperlipidemia, unspecified; G43.709 Chronic migraine without aura, not intractable, without status migrainosus; I26.99 Other pulmonary embolism without acute cor pulmonale | CPT/HCPCS: 80048; 83036 ==

== ENCOUNTER → 2019-10-12 13:13 | Outpatient (BNVA) | payer MEDICARE, MEDICAID, SELFPAY | PROVIDERS: PCP Family Medicine; Visit Provider Specialist | DX: G43.711 Chronic migraine without aura, intractable, with status migrainosus (principal); G95.9 Disease of spinal cord, unspecified; E66.01 Morbid (severe) obesity due to excess calories | CPT/HCPCS: 99215 ==

== ENCOUNTER 2019-10-24 16:11 | Outpatient (CLI) | payer MEDICARE, MEDICAID, SELFPAY ==
--- NOTE | 2019-10-24 16:31 | MR_ITS ---
WS: [id number] MRI HEAD WITHOUT CONTRAST TECHNIQUE: Sagittal T1, T2 axial, T2 axial FLAIR, axial and coronal T1 images, axial susceptibility w eighted imaging, axial diffusion weighted images, and coronal T2 images were obtained. CLINICAL INFORMATION: CHRONIC MIGRAINE WITHOUT AURA,INTRACTABLE COMPARISON: None. FINDINGS: No evidence of restricted diffusion to suggest acute ischemia. Ventricular system and basal cisterns are patent. Mild patchy periventricular supratentorial white matter changes nonspecific in a patient this age but can be seen with minimal small vessel disease and chronic migraine headaches. Normal pos terior fossa. Normal vascular flow voids at the skull base. No extra-axial fluid collections. Paranas al sinuses and mastoid air cells are well aerated. Mild symmetric atrophy involving the temporal lobes and temporal formations. No evidence of mesial t emporal sclerosis. Normal optic chiasm and pituitary infundibulum. Incidental partially sella. No hem osiderin on susceptibly weighted images. MR/MR head wo con* [id number] IMPRESSION: 1. No evidence of restricted diffusion to suggest acute ischemia. 2. Minimal patchy supratentorial white matter changes nonspecific in a patient this age but can be seen with minimal small vessel disease or migraine headach es. No other suspicious intracranial signal abnormalities. 3. Normal cerebellum and posterior fossa. 4. Temporal lobes and hippocampal formations are normal in appearance. 5. Normal optic chiasm and pituitary infundibulum.
--- NOTE | 2019-10-24 16:31 | MR_ITS ---
WS: [id number] MRI CERVICAL SPINE NONCONTRAST TECHNIQUE: Sagittal T1, T2 and STIR imaging. Axial T2, gradient, and fiesta imaging. CLINICAL INFORMATION: DISEASE OF SPINAL CORD, UNSPECIFIED COMPARISON: None. FINDINGS: Straightening of the normal cervical lordosis. Postoperative changes anterior interbody cervical fusi on C5-C7. Small amount of chronic myelomalacia in the cervical cord at C7. C2-C3: Normal. C3-C4: Mild disc osteophyte complex endplate ridging. Mild facet arthropathy. Small right pericentral disc osteophyte protrusion with slight contact of the cervical cord. Moderate left and no significan t right foraminal narrowing. C4-C5: Disc osteophyte complex with endplate ridging. Small central osteophyte protrusion. Slight con tact of the cervical cord. Mild to moderate central canal stenosis. Mild to moderate bilateral bony f oraminal narrowing. Mild to moderate facet arthropathy. C5-C6: Postoperative changes anterior interbody cervical fusion. Susceptibility artifact from hardwar e. Moderate right and mild left bony foraminal narrowing. Mild central canal stenosis. C6-C7: Anterior interbody cervical fusion. Moderate to severe left bony foraminal narrowing. Right fo ramen is patent. Mild central canal stenosis. Osteophytic ridging. C7-T1: No significant disc bulging. Spinal canal foramen are patent. Visualized brain stem structures: Normal. Prevertebral soft tissues: Normal. MR/MR cervical spin wo con* [id number] IMPRESSION: 1. Straightening of the normal cervical lordosis. Anterior interbody cervical fusion C5-C7 with myelomalacia at the C6 level. Cord signal otherwise normal. 2. Central disc osteophyte protrusion C4-C5 with mild central canal stenosis. 3. Mild to moderate residual central canal stenosis C5-C6 and C6-C7. 4. Multilevel bony foraminal narrowing worse at left C6-C7 where it is severe. Recommend correlation for left C7 nerve root symptoms. 5. Otherwise mild to moderate bony foraminal narrowing worse at bilateral C5-C 6 worse in the right and bilateral C4-C5 worse in the left.
== END 2019-10-24 16:12 | disposition home or self-care (01) ==
LOC: RADSHAW 16:19
PROVIDERS: PCP Family Medicine; Visit Provider Specialist
DX: G95.9 Disease of spinal cord, unspecified (principal); G43.719 Chronic migraine without aura, intractable, without status migrainosus; M43.22 Fusion of spine, cervical region; M25.78 Osteophyte, vertebrae; M48.02 Spinal stenosis, cervical region
CPT/HCPCS: 70551; 72141

== ENCOUNTER 2019-11-03 09:20 | Outpatient (CLI) | payer MEDICARE, MEDICAID, SELFPAY ==
--- NOTE | 2019-11-03 10:00 | FL_ITS ---
WS: [id number] BARIUM ENEMA SINGLE CONTRAST. HISTORY: K59.00 Constipation, unspecified COMPARISON: None available. FLUOROSCOPY TIME: 2.9 minutes. Difficult placement of the rectal tip due to hemorrhoids. Rectal tip was inserted by the radiologist without too much difficulty. Single contrast evaluation is performed due to tortuosity and patient mo bility. Contrast flows readily into the rectum and the distal colon. Tortuous overlapping loops of GI tract. There are numerous diverticula noted in the sigmoid. No strictures or mucosal thickening. There is ov erlapping and tortuosity of the hepatic and splenic flexures. No persistent filling defects or nodule s. The appendix does fill with contrast and normal. Good evacuation on the postevacuation radiograph. FL/FL barium enema [id number] IMPRESSION: 1. Sigmoid diverticula without acute diverticulitis. 2. Tortuous overlapping loops of colon. 3. No persistent filling defects or strictures identified. 4. Normal appendix. 5. Prior cholecystectomy.
== END 2019-11-03 09:21 | disposition home or self-care (01) ==
LOC: RAD 09:21
PROVIDERS: PCP Family Medicine; Visit Provider Surgery
DX: K59.00 Constipation, unspecified (principal); K57.30 Diverticulosis of large intestine without perforation or abscess without bleeding
CPT/HCPCS: 74270

== ENCOUNTER → 2019-11-28 15:18 | Outpatient (BNVA) | payer MEDICARE, MEDICAID, SELFPAY | PROVIDERS: PCP Family Medicine; Visit Provider Family Medicine | DX: E66.01 Morbid (severe) obesity due to excess calories (principal); Z79.01 Long term (current) use of anticoagulants | CPT/HCPCS: 84443 ==

== ENCOUNTER → 2019-12-27 13:59 | Outpatient (BNVA) | payer MEDICARE, MEDICAID, SELFPAY | PROVIDERS: PCP Family Medicine; Visit Provider Family Medicine | DX: Z79.01 Long term (current) use of anticoagulants (principal); K21.9 Gastro-esophageal reflux disease without esophagitis; I95.1 Orthostatic hypotension; I26.99 Other pulmonary embolism without acute cor pulmonale; I10 Essential (primary) hypertension; F32.9 Major depressive disorder, single episode, unspecified; G43.711 Chronic migraine without aura, intractable, with status migrainosus; G95.9 Disease of spinal cord, unspecified; E11.69 Type 2 diabetes mellitus with other specified complication | CPT/HCPCS: 85610 ==

== ENCOUNTER → 2020-03-07 13:58 | Outpatient (BNVA) | payer MEDICARE, MEDICAID, SELFPAY | PROVIDERS: PCP Family Medicine; Visit Provider Specialist | DX: M54.81 Occipital neuralgia (principal); R41.9 Unspecified symptoms and signs involving cognitive functions and awareness; G47.33 Obstructive sleep apnea (adult) (pediatric); G95.9 Disease of spinal cord, unspecified; G43.711 Chronic migraine without aura, intractable, with status migrainosus; F17.210 Nicotine dependence, cigarettes, uncomplicated | CPT/HCPCS: 64405; 96116; 99215; J1030; J3490 ==

== ENCOUNTER → 2020-04-11 11:11 | Outpatient (BNVA) | payer MEDICARE, MEDICAID, SELFPAY | PROVIDERS: PCP Family Medicine; Visit Provider Family Medicine | DX: I26.99 Other pulmonary embolism without acute cor pulmonale (principal); I10 Essential (primary) hypertension; M62.838 Other muscle spasm; J44.9 Chronic obstructive pulmonary disease, unspecified; F51.04 Psychophysiologic insomnia; E55.9 Vitamin D deficiency, unspecified; F32.9 Major depressive disorder, single episode, unspecified; E11.9 Type 2 diabetes mellitus without complications; K21.9 Gastro-esophageal reflux disease without esophagitis; G95.9 Disease of spinal cord, unspecified; E11.69 Type 2 diabetes mellitus with other specified complication; J32.9 Chronic sinusitis, unspecified; B96.89 Other specified bacterial agents as the cause of diseases classified elsewhere | CPT/HCPCS: 83036; 85610 ==

== ENCOUNTER 2020-04-17 14:54 | Outpatient (CLI) | payer MEDICARE, MEDICAID, SELFPAY ==
--- NOTE | 2020-04-17 15:00 | XRR_ITS ---
PROCEDURE INFORMATION: Exam: XR Abdomen, 1 View Exam date and time: 04/17/2020 3:06 PM Age: 49 years old Clinical indication: Condition or disease; Kidney or ureter condition; Calculus (stone) in kidney and calculus (stone) in ureter; Prior surgery; Surgery type: Gb; Additional info: Rnal and ureteric calculus TECHNIQUE: Imaging protocol: XR of the abdomen. Views: Frontal supine view of the abdomen. 1 View. Total images: 1 COMPARISON: CR FL barium enema [id number] 11/03/2019 9:41 AM FINDINGS: Gastrointestinal tract: Heavy fecal residue. No bowel dilation. Organs: Suspected tiny punctate calyceal nephrolithiasis foci left kidney measuring under 3 mm. No visible right nephrolithiasis. No visible definite of ureterolithiasis. Please note of the upwards of 70% of renal stones are not radiographically visible. Vasculature: Numerous phleboliths in the true pelvis. Bones/joints: Unremarkable for age. Other findings: Heavy fecal residue limits assessment. XR/XR KUB [id number] IMPRESSION: Left nephrolithiasis.
== END 2020-04-17 14:55 | disposition home or self-care (01) ==
PROVIDERS: PCP Family Medicine; Visit Provider Urology
DX: N20.2 Calculus of kidney with calculus of ureter (principal)
CPT/HCPCS: 74018; 81003

== ENCOUNTER → 2020-08-09 14:30 | Outpatient (BNVA) | payer MEDICARE, MEDICAID, SELFPAY | PROVIDERS: PCP Family Medicine; Visit Provider Family Medicine | DX: Z79.01 Long term (current) use of anticoagulants (principal); M62.838 Other muscle spasm; I10 Essential (primary) hypertension; E78.2 Mixed hyperlipidemia; E11.69 Type 2 diabetes mellitus with other specified complication; E11.9 Type 2 diabetes mellitus without complications; Z74.09 Other reduced mobility; I26.99 Other pulmonary embolism without acute cor pulmonale; G95.9 Disease of spinal cord, unspecified | CPT/HCPCS: 80053; 80061; 83036; 85610 ==

== ENCOUNTER → 2020-08-23 12:03 | Outpatient (BNVA) | payer MEDICARE, MEDICAID, SELFPAY | PROVIDERS: PCP Family Medicine; Visit Provider Family Medicine | DX: I10 Essential (primary) hypertension (principal); I26.99 Other pulmonary embolism without acute cor pulmonale; Z79.01 Long term (current) use of anticoagulants | CPT/HCPCS: 80048; 85610 ==

== ENCOUNTER → 2020-08-29 10:47 | Outpatient (BNVA) | payer MEDICARE, MEDICAID, SELFPAY | PROVIDERS: PCP Family Medicine; Visit Provider Specialist | DX: G43.711 Chronic migraine without aura, intractable, with status migrainosus (principal); M54.81 Occipital neuralgia; G47.33 Obstructive sleep apnea (adult) (pediatric); G95.9 Disease of spinal cord, unspecified; F17.210 Nicotine dependence, cigarettes, uncomplicated | CPT/HCPCS: 64405; 99214; J1030; J3490 ==

== ENCOUNTER → 2020-09-12 11:54 | Outpatient (BNVA) | payer MEDICARE, MEDICAID, SELFPAY | PROVIDERS: PCP Family Medicine; Visit Provider Family Medicine | DX: Z79.01 Long term (current) use of anticoagulants (principal) | CPT/HCPCS: 85610 ==

== ENCOUNTER 2020-09-18 13:43 | Outpatient (CLI) | payer MEDICARE, MEDICAID, SELFPAY ==
--- NOTE | 2020-09-18 13:52 | US_ITS ---
WS: [id number] RENAL ULTRASOUND HISTORY: UROLITHIASIS COMPARISON: None available. TECHNIQUE: 2-D and color Doppler imaging of the kidney submitted. Right kidney: 12.3 cm x 4.2 cm x 5.4 cm. Normal echogenicity with no hydronephrosis or mass. Left kidney: 10.9 cm x 4.2 cm x 5.7 cm. Normal size kidney. Nonobstructing 6 mm calcification in the lower pole LEFT kidney. There may be an additional calcifications in the LEFT kidney that are smaller than 6 mm. No obstruction or solid mass . Aorta: Normal. Urinary Bladder: Urinary bladder is not distended. US/US renal BI* [id number] IMPRESSION: 1. LEFT renal calcification measuring 6 mm in the lower pole is nonobstructing . Additional calcifications may be present but more difficult to visualize. 2. Negative RIGHT kidney.
== END 2020-09-18 13:44 | disposition home or self-care (01) ==
PROVIDERS: PCP Family Medicine; Visit Provider Urology
DX: N20.0 Calculus of kidney (principal)
CPT/HCPCS: 76770; 81003

== ENCOUNTER → 2020-11-01 10:20 | Outpatient (BNVA) | payer OTHER, MEDICAID, SELFPAY | PROVIDERS: PCP Family Medicine; Visit Provider Specialist | DX: G43.711 Chronic migraine without aura, intractable, with status migrainosus (principal); M54.81 Occipital neuralgia; G95.89 Other specified diseases of spinal cord; G80.1 Spastic diplegic cerebral palsy; S06.890S Other specified intracranial injury without loss of consciousness, sequela; Y93.9 Activity, unspecified; F17.200 Nicotine dependence, unspecified, uncomplicated | CPT/HCPCS: 64405; 99214; J1030; J3490 ==

== ENCOUNTER → 2020-11-07 13:18 | Outpatient (BNVA) | payer OTHER, MEDICAID, SELFPAY | PROVIDERS: PCP Family Medicine; Visit Provider Family Medicine | DX: E11.69 Type 2 diabetes mellitus with other specified complication (principal); E11.9 Type 2 diabetes mellitus without complications; Z79.01 Long term (current) use of anticoagulants; I26.99 Other pulmonary embolism without acute cor pulmonale; I10 Essential (primary) hypertension; M62.838 Other muscle spasm; J44.9 Chronic obstructive pulmonary disease, unspecified; F51.04 Psychophysiologic insomnia; E55.9 Vitamin D deficiency, unspecified; F32.9 Major depressive disorder, single episode, unspecified; Z74.09 Other reduced mobility; E66.01 Morbid (severe) obesity due to excess calories; I50.9 Heart failure, unspecified; K21.9 Gastro-esophageal reflux disease without esophagitis; E78.5 Hyperlipidemia, unspecified | CPT/HCPCS: 80053; 83036; 85610 ==

== ENCOUNTER → 2020-12-25 11:30 | Outpatient (BNVA) | payer OTHER, MEDICAID, SELFPAY | PROVIDERS: PCP Family Medicine; Visit Provider Family Medicine | DX: I26.99 Other pulmonary embolism without acute cor pulmonale (principal) | CPT/HCPCS: 85610 ==

== ENCOUNTER → 2021-02-01 13:44 | Outpatient (BNVA) | payer OTHER, MEDICAID, SELFPAY | PROVIDERS: PCP Family Medicine; Visit Provider Family Medicine | DX: I26.99 Other pulmonary embolism without acute cor pulmonale (principal) | CPT/HCPCS: 85610 ==

== ENCOUNTER 2022-07-18 13:29 | Outpatient (CLI) | payer MEDICARE, SELFPAY ==
--- NOTE | 2022-07-18 13:43 | MM_ITS ---
WS: [id number] BILATERAL 3D TOMOSYNTHESIS DIGITAL SCREENING MAMMOGRAPHY WITH CAD CLINICAL INFORMATION: SCREEN HISTORY: Screening mammogram. No current complaints. COMPARISON: None available TECHNIQUE: Bilateral CC and MLO views. FINDINGS: Scattered fibroglandular densities bilaterally. No suspicious focal mass, asymmetry, calcifications, or architectural distortion. No evidence of malignancy. Punctate and lucent centered calcifications. MM/[place] [id number] IMPRESSION: BI-RADS: 2-Benign FOLLOW UP: 1 Year Follow-up Recommend return to annual screening mammography.
== END 2022-07-18 13:30 | disposition home or self-care (01) ==
LOC: RAD 13:32
PROVIDERS: PCP Nurse Practitioner Family; Visit Provider Nurse Practitioner Family
DX: Z12.31 Encounter for screening mammogram for malignant neoplasm of breast (principal)
CPT/HCPCS: 77063; 77067

== ENCOUNTER 2023-11-27 14:03 | Emergency (ER) | payer MEDICARE, SELFPAY ==
[2023-11-27] VITALS (9 sets, daily range): BP systolic 123–132; BP diastolic 71–80; PULSE 83; RESP 17–18; TEMP 36.8; O2SAT 92–98; BMI 44.6
--- NOTE | 2023-11-27 14:45 | ECG_ITS ---
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 Measurements Intervals [place] Rate: 86 P: -1 LA: 121 QRS: 26 QRSD: 84 T: 44 QT: 363 QTc: 435 Interpretive Statements SINUS RHYTHM Compared to ECG 09/05/2019 19:20:04 Sinus tachycardia no longer present T-wave abnormality no longer present Electronically Signed On 11-27-2023 18:18:04 CDT by Bhargavi Aragon M.D. [id number] f
[2023-11-27 14:49] LABS: Basophils # 0.1 10^3/uL (0.0-0.1); Basophils % 0.8 %; Eosinophils # 0.2 10^3/uL (0.0-0.8); Eosinophils % 1.5 %; Hematocrit 46.2 % (36-47); Lymphocytes # 3.5 10^3/uL (0.8-4.8); Mean Corpuscular Hemoglobin 32.5 pg (27-33); Mean Corpuscular Volume 95.7 fl (85-98); Mean Platelet Volume 9.6 fL (7.4-10.4); Monocytes # 0.7 10^3/uL (0.2-0.9); Monocytes % 6.8 %; Neutrophils # 5.51 10^3/uL (1.8-7.7); Neutrophils % 55.6 %; Nucleated Red Blood Cells % 0 %; Platelet Count 269 10^3/cmm (157-399); Red Blood Count 4.83 10^6/uL (3.85-5.65); Red Cell Distribution Width 12.1 % (12.1-15.1); White Blood Count 9.91 10^3/uL (3.29-11.43)
--- NOTE | 2023-11-27 14:53 | XR_ITS ---
WS: [id number] Exam: XR chest 1V portable [id number] Date/Time of Exam: 11/27/2023 3:03 PM Reason For Exam: cp Comparison 09/05/2019. Lungs are fully inflated and clear. Normal cardiomediastinal silhouette. Regional bony elements are i ntact. Fusion hardware in the lower C-spine. XR/XR chest 1V portable [id number] IMPRESSION: 1. Negative chest.
[2023-11-27 14:55] LABS: Glucose Point of Care 181 mg/dL (70-110)
[2023-11-27 15:07] LABS: INR 1.16 (0.8-1.2)
[2023-11-27 15:08] LABS: Alanine Aminotransferase 28 U/L (0-33); Albumin Level 3.9 g/dL (3.5-5.2); Alkaline Phosphatase 65 U/L (35-105); Anion Gap 19.2 (5-19); Aspartate Amino Transferase 30 U/L (0-32); Blood Urea Nitrogen 11 mg/dL (6-20); Calcium 8.3 mg/dL (8.5-10.5); Carbon Dioxide 24 mmol/L (22-29); Chloride 99 mmol/L (98-107); Creatinine Clr Calc Pharmacy 100.3392; Globulin 2.9 g/dL (1.3-4.6); Glomerular Filtration Rate 74.5 mL/min (90-130); Glucose 174 mg/dL (65-115); Osmolality Calculated 290 mOsm/kg (285-295); Potassium 4.2 mmol/L (3.5-5.1); Sodium 138 mmol/L (136-145); Total Bilirubin 0.3 mg/dL (0.15-1.2); Total Protein 6.8 g/dL (6.6-8.7)
[2023-11-27 15:36] LABS: Troponin(5th) Baseline 13 ng/L (0-10)
--- NOTE | 2023-11-27 15:42 | W.ED.GENADLT ---
HPI - General Adult General: Chief complaint: General Medical Stated complaint: Dr. Maza--high blood sugar, back pain, blood pre Time Seen by Provider: 11/27/23 15:01 Source: patient Mode of arrival: ambulatory Limitations: no limitations History of Present Illness: 53-year-old female is here with multiple complaints she states she has been having hypertension her blood sugars been running high she states she is also been having back pain along with abdominal pain and chest pain over the last few days. States she also has pain in her legs she has no really specific complaint at this time states she has been concerned over her blood pressure. Associated symptoms: Reports chest pain; Deny dyspnea, headache(s), nausea, rash or vomiting Related Data Home Medications Medication Instructions Recorded Confirmed aspirin 81 mg tablet,delayed 81 mg PO DAILY 07/03/19 08/27/22 release blood sugar diagnostic (Blood #10 ea 03/04/20 08/27/22 Glucose Test strips) blood-glucose meter (Blood Glucose #1 ea 03/04/20 08/27/22 Monitoring kit) lancets 30 gauge #100 ea 03/04/20 08/27/22 Previous Rx's Medication Instructions Recorded albuterol sulfate 2.5 mg/3 mL 2.5 mg (3 mL) inhalation QID PRN 09/12/19 (0.083 %) solution for nebulization shortness of breath or wheezing #180 mL nebulizer accessories #1 ea 09/12/19 nebulizers #1 ea 09/12/19 fremanezumab-vfrm 225 mg/1.5 mL 225 mg (1.5 mL) SUBCUT Q30D #1.5 mL 08/29/20 subcutaneous auto-injector (Ajovy) oxybutynin chloride 10 mg 10 mg PO DAILY #30 tabs 09/18/20 tablet,extended release 24 hr albuterol sulfate 90 mcg/actuation See Rx Instructions inhalation 11/07/20 aerosol inhaler (Ventolin HFA) .COMPLEX PRN shortness of breath or wheezing 30 days #18 grams amitriptyline 10 mg tablet 10 mg PO BEDTIME 90 days #90 tabs 11/07/20 cholecalciferol (vitamin D3) 1,250 50,000 unit PO Q7D 90 days #13 caps 11/07/20 mcg (50,000 unit) capsule duloxetine 60 mg capsule,delayed 60 mg PO BID 90 days #180 caps 11/07/20 release furosemide 20 mg tablet (Lasix) 20 mg PO DAILY 90 days #90 tabs 11/07/20 gabapentin 400 mg capsule See Rx Instructions .Route 11/07/20 .COMPLEX #270 caps hydrochlorothiazide 25 mg tablet 25 mg PO DAILY 90 days #90 tabs 11/07/20 metformin 1,000 mg tablet 1,000 mg PO BID 90 days #180 tabs 11/07/20 miscellaneous medical supply See Rx Instructions miscellaneous 11/07/20 .COMPLEX #1 ea omeprazole 40 mg capsule,delayed 40 mg PO BID 90 days #180 caps 11/07/20 release potassium chloride 20 mEq See Rx Instructions .Route 11/07/20 tablet,extended release .COMPLEX 90 days #180 tabs pravastatin 20 mg tablet 20 mg PO DAILY 90 days #90 tabs 11/07/20 tizanidine 4 mg tablet 6 mg (1.5 x 4 mg) PO TID PRN 01/27/21 muscle spasticity 30 days #135 tabs warfarin 1 mg tablet See Rx Instructions .Route 03/30/21 .COMPLEX #30 tabs warfarin 6 mg tablet See Rx Instructions .Route 03/30/21 .COMPLEX #30 tabs ondansetron 4 mg disintegrating 4 mg PO Q6H PRN nausea and 11/27/23 tablet vomiting #14 tabs Allergies Allergy/AdvReac Type Severity Reaction Status Date / Time erythromycin base Allergy Severe ALGY-Anaphy Verified 11/27/23 14:45 laxis Penicillins Allergy Severe ALGY-Anaphy Verified 11/27/23 14:45 laxis tetracycline Allergy Severe ALGY-Anaphy Verified 11/27/23 14:45 laxis shellfish derived Allergy Intermediate ALGY-Hives Verified 11/27/23 14:45 insect venom Allergy Mild ALGY-Swell Verified 11/27/23 14:45 Lip/Tongue/Throat Review of Systems Const: Reports: fatigue; Denies: fever(s), chills, body aches or change in appetite ENMT: Denies: throat pain or dental pain Card: Reports: chest pain Resp: Denies: dyspnea GI: Reports: abdominal pain; Denies: nausea, vomiting or diarrhea : Denies: dysuria Musc: Reports: back pain and extremity pain; Denies: neck pain Skin/Breast: Denies: rash Neuro: Denies: headache(s) PFSH ED PFSH: Medical History Urinary incontinence, mixed Urolithiasis Urgency incontinence Hepatic steatosis -diffuse hepatic steatosis noted on imaging, mild transaminitis History of Claire's esophagus Morbid obesity Tobacco abuse -1 PPD -working on quitting, has been on Chantix BMI 45.0-49.9, adult Radicular neuropathy Muscle spasm of both lower legs Type 2 diabetes mellitus Pedal edema Asthma Chronic migraine Depression, controlled -continue Cymbalta Essential hypertension KARISSA (obstructive sleep apnea) Mobility impaired COPD (chronic obstructive pulmonary disease) Hyperlipidemia Vitamin D deficiency GERD (gastroesophageal reflux disease) - hx of Claire's esophagus Restless leg syndrome Insomnia History of pulmonary embolism Surgical History H/O lithotripsy 08/15 Left ureteral stent which was removed after 1 week History of arthroplasty of right ankle History of carpal tunnel surgery History of laminectomy Hx of cataract surgery S/P cholecystectomy Family History Grandmother Cancer Mother , at age 67 Cancer Father CAD (coronary artery disease) Family/Other Chronic kidney disease (CKD) Social History Smoking and tobacco/nicotine status: current every day tobacco/nicotine user cigarettes Packs smoked per day: 1 Quit status (tobacco/nicotine): not considering quitting Second hand smoke exposure: Yes Alcohol intake: never Substance/Drug Use: never Marital status: Current occupational status: disabled Female Reproductive History: Date of last menstrual period: 11/20/23 Spontaneous abortions: No Physical Exam Const: COMMON NORMALS: no acute distress, patient oriented x3 and healthy appearing HENMT: COMMON NORMALS: normocephalic and atraumatic HEAD & SCALP: normocephalic and atraumatic Eye: COMMON NORMALS: Equal, round and reactive pupils present and EOMs intact bilaterally PUPIL: Yes Equal, round and reactive pupils present Neck/C-Spine: COMMON NORMALS: full ROM and supple Chest: COMMONS NORMALS: normal inspection of the chest and normal palpation of entire chest wall Resp: COMMON NORMALS: normal respiratory effort, No retractions, No use of accessory muscles and clear to auscultation bilaterally AUSCULTATION: clear to auscultation bilaterally Cardio: COMMON NORMALS: regular rate, regular rhythm and No murmurs present (Cardio) RATE: regular rate RHYTHM: regular rhythm GI: COMMON NORMALS: Normal to inspection, nondistended, normoactive bowel sounds present, Soft to palpation, non-tender and no masses PALPATION: Yes Soft to palpation Extremity: COMMON NORMALS: normal to inspection and full ROM Neuro: COMMON NORMALS: patient oriented x3, moves all extremities and no focal motor deficits Psych: COMMON NORMALS: mental status grossly normal, Normal thought process present and cooperative THOUGHT PROCESS: Normal thought process present Skin: COMMON NORMALS: no rashes or lesions noted and no wounds GENERAL SKIN EXAM: no rashes or lesions noted Course Vital Signs: Vital signs: Vital Signs Temperature 98.3 F 11/27/23 14:35 Pulse Rate 83 11/27/23 14:35 Respiratory Rate 17 11/27/23 16:53 Blood Pressure 132/80 11/27/23 16:45 Pulse Oximetry 98 11/27/23 16:53 Oxygen Delivery Me thod Room Air 11/27/23 14:35 MDM - General Adult Medical Decision Making Patient presents here with chest and abdominal pain she has been well-appearing here she feels much improved troponins EKGs blood work are normal no signs of ACS she is stable for discharge will prescribe her Zofran she has to follow-up with PCP and return if worsening. Medical Records I reviewed the patient's medical records. Lab Data I reviewed the patient's lab results. 11/27/23 14:31 11/27/23 14:31 Radiology Impressions Chest X-Ray 11/27/23 14:53 IMPRESSION: 1. Negative chest. Laboratory Results WBC 9.91 10^3/uL (3.29-11.43) 11/27/23 14:31 RBC 4.83 10^6/uL (3.85-5.65) 11/27/23 14:31 Hgb 15.70 g/dL (11.27-16.99) 11/27/23 14:31 Hct 46.2 % (36-47) 11/27/23 14:31 MCV 95.7 fl (85-98) 11/27/23 14:31 MCH 32.5 pg (27-33) 11/27/23 14:31 MCHC 34.0 g/dL (30-55) 11/27/23 14:31 RDW 12.1 % (12.1-15.1) 11/27/23 14:31 Plt Count 269 10^3/cmm (157-399) 11/27/23 14:31 MPV 9.6 fL (7.4-10.4) 11/27/23 14:31 Neut % (Auto) 55.6 % 11/27/23 14:31 Lymph % (Auto) 35.0 % 11/27/23 14:31 [place] % (Auto) 6.8 % 11/27/23 14:31 Eos % (Auto) 1.5 % 11/27/23 14:31 Baso % (Auto) 0.8 % 11/27/23 14:31 Neut # (Auto) 5.51 10^3/uL (1.8-7.7) 11/27/23 14:31 Lymph # (Auto) 3.5 10^3/uL (0.8-4.8) 11/27/23 14:31 [place] # (Auto) 0.7 10^3/uL (0.2-0.9) 11/27/23 14:31 Eos # (Auto) 0.2 10^3/uL (0.0-0.8) 11/27/23 14:31 Baso # (Auto) 0.1 10^3/uL (0.0-0.1) 11/27/23 14:31 Nucleated RBC % (auto) 0 % 11/27/23 14:31 Nucleated RBCs # 0.0 /100WBC 11/27/23 14:31 PT 15.20 SECONDS (12.1-14.9) H 11/27/23 14:31 INR 1.16 (0.8-1.2) 11/27/23 14:31 Sodium 138 mmol/L (136-145) 11/27/23 14:31 Potassium 4.2 mmol/L (3.5-5.1) 11/27/23 14:31 Chloride 99 mmol/L (98-107) 11/27/23 14:31 Carbon Dioxide 24 mmol/L (22-29) 11/27/23 14:31 Anion Gap 19.2 (5-19) H 11/27/23 14:31 BUN 11 mg/dL (6-20) 11/27/23 14:31 Creatinine 0.8 mg/dL (0.5-0.9) 11/27/23 14:31 GFR Calculation 74.5 mL/min (90-130) L 11/27/23 14:31 Glucose 174 mg/dL (65-115) H 11/27/23 14:31 POC Glucose 181 mg/dL (70-110) H 11/27/23 14:49 Calculated Osmolality 290 mOsm/kg (285-295) 11/27/23 14:31 Calcium 8.3 mg/dL (8.5-10.5) L 11/27/23 14:31 Total Bilirubin 0.3 mg/dL (0.15-1.2) 11/27/23 14:31 AST 30 U/L (0-32) 11/27/23 14:31 ALT 28 U/L (0-33) 11/27/23 14:31 Alkaline Phosphatase 65 U/L (35-105) 11/27/23 14:31 Troponin T Baseline 13 ng/L (0-10) H 11/27/23 14:31 Troponin T 120 Minute 12.26 ng/L (0-10) H 11/27/23 16:25 Delta Troponin T -0.74 ABS# (0-10) L 11/27/23 16:25 Total Protein 6.8 g/dL (6.6-8.7) 11/27/23 14:31 Albumin 3.9 g/dL (3.5-5.2) 11/27/23 14:31 Globulin 2.9 g/dL (1.3-4.6) 11/27/23 14:31 All radiology interpretation(s) finalized by discharge EKG Data EKG 1: I personally reviewed and interpreted this EKG as follows: EKG interpretation date: 11/27/23 EKG interpretation time: 14:45 Interpretation: nsr hr [address] or t wave abnormalities qrs 84 qtc 406 Computer generated interpretation: Chest X-Ray 11/27/23 14:53 IMPRESSION: 1. Negative chest. EKG 2: I personally reviewed and interpreted this EKG as follows: EKG interpretation date: 11/27/23 EKG interpretation time: 16:20 Interpretation: nsr hr [address] or t wave abnormalities qrs 83 qtc 428 Computer generated interpretation: Chest X-Ray 11/27/23 14:53 IMPRESSION: 1. Negative chest. Discharge Plan Discharge Patient Disposition: Home Clinical Impression: Chest pain, Abdominal pain Condition: Stable Prescriptions: New ondansetron 4 mg tablet,disintegrating 4 mg PO Q6H PRN (Reason: nausea and vomiting) Qty: 14 0RF No Action oxybutynin chloride 10 mg tablet extended release 24hr 10 mg PO DAILY Qty: 30 12RF aspirin 81 mg tablet,delayed release (DR/EC) 81 mg PO DAILY (DME) nebulizers [facility] See Rx Instructions .ROUTE .MEDSUPPLY Qty: 1 0RF Rx Instructions: As directed ([facility]) nebulizer accessories [facility] See Rx Instructions .ROUTE .MEDSUPPLY Qty: 1 0RF Rx Instructions: As directed albuterol sulfate 2.5 mg /3 mL (0.083 %) solution for nebulization 2.5 mg INHALATION QID PRN (Reason: shortness of breath or wheezing) Qty: 180 5RF Ajovy Autoinjector 225 mg/1.5 mL auto-injector 225 mg SUBCUT Q30D Qty: 1.5 2RF albuterol sulfate [Ventolin HFA] 90 mcg/actuation HFA aerosol inhaler See Rx Instructions INHALATION .COMPLEX PRN (Reason: shortness of breath or wheezing) 30 Days Qty: 18 5RF Rx Instructions: 1-2 PUFFS inhalation EVERY 4-6 HRS PRN; amitriptyline 10 mg tablet 10 mg PO BEDTIME 90 Days Qty: 90 1RF cholecalciferol (vitamin D3) 1,250 mcg (50,000 unit) capsule 50,000 unit PO Q7D 90 Days Qty: 13 1RF Rx Instructions: (SATURDAYS) duloxetine 60 mg capsule,delayed release(DR/EC) 60 mg PO BID 90 Days Qty: 180 1RF furosemide [Lasix] 20 mg tablet 20 mg PO DAILY 90 Days Qty: 90 1RF gabapentin 400 mg capsule See Rx Instructions .ROUTE .COMPLEX Qty: 270 2RF Dose Instruction: TAKE 1 CAPSULE BY MOUTH THREE TIMES DAILY Rx Instructions: TAKE 1 CAPSULE BY MOUTH THREE TIMES DAILY hydrochlorothiazide 25 mg tablet 25 mg PO DAILY 90 Days Qty: 90 1RF metformin 1,000 mg tablet 1,000 mg PO BID 90 Days Qty: 180 1RF miscellaneous medical supply Misc See Rx Instructions miscellaneous .COMPLEX Qty: 1 0RF Rx Instructions: Motorized wheelchair miscellaneous; omeprazole 40 mg capsule,delayed release(DR/EC) 40 mg PO BID 90 Days Qty: 180 1RF potassium chloride 20 mEq tablet extended release See Rx Instructions .ROUTE .COMPLEX 90 Days Qty: 180 1RF Dose Instruction: Take 1 tablet by mouth twice daily Rx Instructions: Take 1 tablet by mouth twice daily pravastatin 20 mg tablet 20 mg PO DAILY 90 Days Qty: 90 3RF Hold Instructions: Home Medication placed on hold at Doctor's office ([facility]) Blood Glucose Test Strip See Rx Instructions .ROUTE .MEDSUPPLY Qty: 10 Rx Instructions: Brand per insurance ([employer] [facility] [employer]) blood-glucose meter [Blood Glucose Monitoring] Kit See Rx Instructions .ROUTE .MEDSUPPLY Qty: 1 Rx Instructions: Brand per insurance ([employer] [facility] [employer]) lancets 30 gauge misc See Rx Instructions .ROUTE .MEDSUPPLY Qty: 100 Rx Instructions: Brand per insurance tizanidine 4 mg tablet 6 mg PO TID PRN (Reason: muscle spasticity) 30 Days Qty: 135 2RF warfarin 6 mg tablet See Rx Instructions .ROUTE .COMPLEX Qty: 30 0RF Dose Instruction: Take 1 tablet by mouth once daily Rx Instructions: Take 1 tablet by mouth once daily warfarin 1 mg tablet See Rx Instructions .ROUTE .COMPLEX Qty: 30 0RF Dose Instruction: Take 1 tablet by mouth once daily Rx Instructions: Take 1 tablet by mouth once daily Discharge Orders: Discharge ED (Routine); Ordered 11/27/23 Ordered By: Kyaw West Referrals: IGNACIO MAZA APRN [Primary Care Provider] - Discharge Diet: Advance as tolerated Discharge Activity: Resume usual activity Patient Instructions: Chest Pain (ED), Abdominal Pain (ED) Coding Level of Care Code ED Scientific Research Manager for Eric Gurrola
--- NOTE | 2023-11-27 16:20 | ECG_ITS ---
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 Measurements Intervals Outlook Rate: 85 P: -2 MS: 121 QRS: 32 QRSD: 83 T: 36 QT: 386 QTc: 461 Interpretive Statements SINUS RHYTHM Compared to ECG 11/27/2023 14:45:47 No significant changes Electronically Signed On 11-27-2023 18:31:19 CDT by Bhagravi Aragon M.D. [id number]
[2023-11-27] MEDS: amlodipine 10 mg Tablet PO (16:22)
--- NOTE | 2023-11-27 16:22 | PC.NURSE ---
I attempted an IV twice on the patient and was not successful. Patient then asked me why she needed an IV and I explained to her that physician had ordered pain meds, nausea medicine and blood pressure medicine through an IV. Patient stated that her blood pressure was not high earlier and that she was not having any pain any more. I went and spoke with Dr. West and he stated to recheck her blood pressure and record it a few times, if it was indeed normal then she did not need the BP meds. He also stated if she did not want the IV pain meds she did not have to have them.
[2023-11-27] MEDS: morphine 4 mg/mL SDV 1 mL IM (16:53)
[2023-11-27] MEDS: ondansetron 2 mg/ML SDV 2 mL 4 MG IM (16:53)
[2023-11-27 17:03] LABS: Troponin 5 2HR 12.26 ng/L (0-10)
[2023-11-27 17:04] LABS: Troponin 5 2HR Delta -0.74 ABS# (0-10)
== END 2023-11-27 17:33 | disposition home or self-care (01) ==
PROVIDERS: Emergency Provider Emergency Medicine; PCP Nurse Practitioner Family
DX: R07.9 Chest pain, unspecified (principal); R10.9 Unspecified abdominal pain; Z79.82 Long term (current) use of aspirin; Z79.84 Long term (current) use of oral hypoglycemic drugs; Z79.01 Long term (current) use of anticoagulants; F17.210 Nicotine dependence, cigarettes, uncomplicated; E11.9 Type 2 diabetes mellitus without complications; I10 Essential (primary) hypertension; J44.9 Chronic obstructive pulmonary disease, unspecified; E78.5 Hyperlipidemia, unspecified
CPT/HCPCS: 36415; 36416; 71045; 80053; 82962; 84484; 85025; 85610; 93005; 96372; 99284; 99285; J2270; J2405

== ENCOUNTER 2024-08-10 14:52 | Outpatient (CLI) | payer MEDICARE, SELFPAY ==
--- NOTE | 2024-08-10 15:01 | MM_ITS ---
WS: [id number] BILATERAL 3D TOMOSYNTHESIS DIGITAL SCREENING MAMMOGRAPHY WITH CAD CLINICAL INFORMATION: SCREEN HISTORY: Screening mammogram. No current complaints. COMPARISON: 2022 TECHNIQUE: Bilateral CC and MLO views. FINDINGS: Scattered fibroglandular densities bilaterally. No suspicious focal mass, asymmetry, calcifications, or architectural distortion. No evidence of malignancy. Incidental punctate and lucent centered calcifications. MM/MM scr tomosynthesis [id number] IMPRESSION: DENSITY: There are scattered areas of fibroglandular density. BI-RADS: 2 - Benign. FOLLOW UP: 1 Year Follow-up Recommend return to annual screening mammography.
== END 2024-08-10 14:53 | disposition home or self-care (01) ==
LOC: RAD 14:54
PROVIDERS: PCP Nurse Practitioner Family; Visit Provider Nurse Practitioner Family
DX: Z12.31 Encounter for screening mammogram for malignant neoplasm of breast (principal); R92.323 Mammographic fibroglandular density, bilateral breasts; R92.1 Mammographic calcification found on diagnostic imaging of breast
CPT/HCPCS: 77063; 77067